=== PATIENT | female | born 1980 | race Caucasian/White ===

== ENCOUNTER 2022-08-02 16:57 | Observation (INO) ==
--- NOTE | 2022-08-02 17:09 | Emergency Department Note ---
History of Present Illness General Chief complaint: Abdominal Pain Stated complaint: STOMACH PAIN,LBP,DARK BOWEL,DIZZY Time Seen by Provider: 08/02/22 17:07 History of Present Illness Maximum Pain Intensity: 6 This 41-year-old female patient presents to the emergency department with her rita stockton for evaluation of abdominal pain, diarrhea, and black stools for the past couple of days. Rates her discomfort as 6/10. She has a history of IBS (alternating constipation and diarrhea) as well as diverticulitis. She had been taking Colestipol for bile acid reflux, but hasn't taken it for the past week. She takes a baby aspirin for "a clogged artery" in her left thigh. Denies frequent NSAIDs. She has been under a lot of stress recently. Sees A in [place] for GI. Last EGD and colonoscopy were about 3-4 years ago per patient. She is unsure what they showed though. She went to the ER in [place] on 07/28/[address] scan of her abdomen and pelvis with IV contrast that was normal per patient. Was started on Levsin and she has been taking it 3 times a day with improvement of the abdominal cramping, but still having abdominal pain, diarrhea, and black stools. She started with generalized abdominal pain about 2 weeks ago that has gotten progressively worse. Was having a lot of abdominal spasms as well that initially improved with Levsin, but then came back. Diarrhea has been off and on for a couple weeks, but worse over the past week. Having up to 12 BMs a day for the past week, mostly in the morning. She was at a alliance party today and had a BM that was "pure black liquid stools," her blood pressure dropped, and she felt like she was going to pass out per patient and she became concerned. Typically she has elevated blood pressure readings so the low blood pressure is abnormal for her. Normally takes losartan once a day and labetalol twice a day. she was just started on amlodipine by her PCP, but has not started taking it yet. Was treated with Diflucan for a yeast infection the end of June right before the diarrhea started. Was also given a script for Zofran, but has not been taking because the Levsin has helped with her nausea. Constantly belching and having a lot of reflux symptoms despite her Nexium 40 mg BID. No bright red blood in her stools. Initially her stool was yellowish brown and then turned to mucous and black watery stools. Not on any blood thinners. Denies any chest pain or shortness of breath. Denies any fevers, cough, or URI symptoms. Home Medications Medication Instructions Recorded Confirmed Type amlodipine 5 mg tablet 5 mg PO DAILY 08/02/22 08/02/22 History aspirin 81 mg tablet,delayed 81 mg PO DAILY 08/02/22 08/02/22 History release benzoyl peroxide 5 % topical 1 applic topical DAILY 08/02/22 08/02/22 History cleanser cholecalciferol (vitamin D3) 25 1,000 unit PO DAILY 08/02/22 08/02/22 History mcg (1,000 unit) tablet clindamycin phosphate 1 % topical 1 applic topical BID 08/02/22 08/02/22 History swab colestipol 1 gram tablet 1 - 2 g PO BID PRN as directed 08/02/22 08/02/22 History dicyclomine 20 mg tablet 20 mg PO UD 08/02/22 08/02/22 History esomeprazole magnesium 40 mg 40 mg PO BID 08/02/22 08/02/22 History capsule,delayed release fexofenadine 180 mg tablet 180 mg PO DAILY 08/02/22 08/02/22 History (Breanna Allergy) fluticasone propionate 115 2 puff inhalation BID 08/02/22 08/02/22 History mcg-salmeterol 21 mcg/actuation HFA inhaler (Advair HFA) hyoscyamine sulfate 0.125 mg tablet 0.125 mg PO QID 08/02/22 08/02/22 History labetalol 200 mg tablet 200 mg PO BID 08/02/22 08/02/22 History levalbuterol tartrate 45 2 puff inhalation Q4 PRN acute 08/02/22 08/02/22 History mcg/actuation aerosol inhaler symptoms COUGH,WHEEZE,SOB, losartan 100 mg tablet 100 mg PO DAILY 08/02/22 08/02/22 History montelukast 10 mg tablet 10 mg PO DAILY 08/02/22 08/02/22 History eipxboed-mbc-oacz-FA-Ca carb-vit K 1 tab PO DAILY 08/02/22 08/02/22 History 18 mg iron-400 mcg-500 mg tablet (One-A-Day Womens Formula) norethindrone (contraceptive) 0.35 0.35 mg PO DAILY 08/02/22 08/02/22 History mg tablet (Jencycla) rizatriptan 10 mg tablet 10 mg PO UD PRN Headache 08/02/22 08/02/22 History tretinoin 0.025 % topical cream 1 applic topical HS 08/02/22 08/02/22 History (Retin-A) triamcinolone acetonide 55 mcg 2 spray intranasal DAILY 08/02/22 08/02/22 History nasal spray aerosol Allergies Allergy/AdvReac Type Severity Reaction Status Date / Time acetaminophen Allergy Rash Verified 08/02/22 17:23 [From Darvocet-N] meperidine [From Demerol] Allergy Swollen Verified 08/02/22 17:23 throat propoxyphene Allergy Rash Verified 08/02/22 17:23 [From Darvocet-N] Sulfa (Sulfonamide Allergy Rash Verified 08/02/22 17:23 Antibiotics) tetracycline Allergy Rash Verified 08/02/22 17:23 Past Med/Surg History Medical History Allergic rhinitis Anxiety Asthma Diverticulitis GERD (gastroesophageal reflux disease) HTN (hypertension) with goal to be determined IBS (irritable bowel syndrome) Peripheral arterial disease Scoliosis Surgical History H/O detached retina repair H/O dilation and curettage History of breast lump removal History of cholecystectomy Social History Smoking Status: Never smoker Feels Safe at Home: Yes Review of Systems See HPI for pertinent positives & negatives. Physical Exam Vital Signs Vital Signs - 24 hr 08/02/22 17:01 08/02/22 19:19 08/02/22 20:50 Temperature 36.8 C Temperature Source Temporal Artery Scan Pulse Rate 77 Pulse Rate [Apical] 71 71 Pulse Rhythm [Apical] Regular Pulse Strength [Apical] Normal Respiratory Rate 19 19 Respiratory Effort / Characteristics Non-Labored Non-Labored Respiratory Depth Normal Normal Blood Pressure 183/118 H Blood Pressure [Left Arm] 181/111 H 183/104 H Blood Pressure Mean 139 Blood Pressure Mean [Left Arm] 134 130 Pulse Oximetry 98 97 100 Oxygen Delivery Method Room Air Room Air Room Air Sepsis Recent Fever Within 48 Hours No Sepsis New/Unexplained Change in Mental Status N/A Sepsis Action Taken by Nursing No Action Required 08/02/22 21:08 08/02/22 22:12 Temperature Temperature Source Pulse Rate 77 65 Pulse Rate [Apical] Pulse Rhythm [Apical] Pulse Strength [Apical] Respiratory Rate 16 19 Respiratory Effort / Characteristics Respiratory Depth Blood Pressure 164/89 H 159/97 H Blood Pressure [Left Arm] Blood Pressure Mean 114 117 Blood Pressure Mean [Left Arm] Pulse Oximetry 98 99 Oxygen Delivery Method Room Air Room Air Sepsis Recent Fever Within 48 Hours Sepsis New/Unexplained Change in Mental Status Sepsis Action Taken by Nursing VITALS: Vitals are noted on the nurse's note and reviewed by myself. GENERAL: Non toxic, no acute distress, non-diaphoretic. SKIN: Capillary refill <2 sec. EARS: External auditory canals clear, tympanic membranes pearly curry without erythema or effusion bilaterally. EYES: PERRLA. EOMI. Conjunctivae without injection, sclerae without icterus. NOSE: Patent without discharge. MOUTH: Mucous membranes moist. Uvula midline. Airway patent. NECK: Supple without nuchal rigidity. HEART: Regular rate and rhythm without murmurs gallops or rubs. LUNGS: Clear to auscultation bilaterally without wheezes, rales or rhonchi. No retractions or accessory muscle use. ABDOMEN: Positive bowel sounds x 4. Normal tympanic percussion. Soft, nontender, without masses or organomegaly. Grady sign negative. No guarding or rebound tenderness. No focal RLQ or LLQ tenderness. RECTAL EXAM: Permission to perform the exam. Framing And Hanging present for exam. No external lesions noted. No external hemorrhoids. Normal sphincter tone. Internal hemorrhoids are not enlarged. No masses, tears, fistulas, fissures, abscess, or other lesion noted. Stool is black and Hemoccult positive. MUSCULOSKELETAL: No gross musculoskeletal defects. NEURO: Patient was alert and oriented to person place and time. No focal neurological deficits. Course Administered Medications Discontinued Medications Amlodipine Besylate (Amlodipine Besylate 5 Mg Tab) 5 mg PO NOW ONE Stop: 08/02/22 21:02 Last Admin: 08/02/22 21:25 Dose: Not Given Documented By: MELIA Sodium Chloride (Nss 1000ml) 1,000 mls @ 999 mls/hr IV .Q1H1M STA Stop: 08/02/22 18:34 Last Infusion: 08/02/22 19:01 Dose: 0 mls/hr Documented By: Admin: 08/02/22 18:00 Dose: 999 mls/hr Documented By: NRB Pantoprazole Sodium 40 mg/ (Syringe) 10 mls @ 5 mls/min IV NOW ONE Stop: 08/02/22 17:38 Last Admin: 08/02/22 18:17 Dose: 5 mls/min Documented By: NRB Famotidine (Pepcid 20mg Iv Push) 20 mg in 5 mls @ 2.5 mls/min IV NOW STA Stop: 08/02/22 17:38 Last Admin: 08/02/22 18:16 Dose: 2.5 mls/min Documented By: NRJudit Ioversol (Optiray 320 100ml) 93 ml IV ONCE ONE Stop: 08/02/22 19:59 Last Admin: 08/02/22 19:58 Dose: 93 ml Documented By: EAJudit Labetalol HCl (Labetalol Hcl 200 Mg Tab) 200 mg PO NOW STA Stop: 08/02/22 21:02 Last Admin: 08/02/22 21:17 Dose: 200 mg Documented By: MELIA Lorazepam (Lorazepam 2 Mg/1 Ml Vial) 0.25 mg IV NOW STA Stop: 08/03/22 00:08 Last Admin: 08/03/22 00:33 Dose: 0.25 mg Documented By: MELIA Ondansetron HCl (Ondansetron Inj 2 Mg/Ml 2 Ml Vial) 4 mg IV NOW STA Stop: 08/02/22 18:13 Last Admin: 08/02/22 18:15 Dose: 4 mg Documented By: NRB Medical Decision Making Differential Diagnosis Differential diagnosis includes hepatitis, pancreatitis, cholecystitis, cholelithiasis, appendicitis, kidney stone, pyelonephritis, UTI, gastritis, gastroenteritis, mesenteric adenitis, obstruction, constipation, hernia, GI bl eed, abdominal abscess, perforation, diverticulitis, IBD, ischemic colitis, abdominal aortic aneurysm, , ectopic , ovarian cyst, ovarian torsion, acute salpingitis, or others. Laboratory Data Attestation: I reviewed the patient's lab results. 08/02/22 17:37 08/02/22 17:37 Lab Results 08/02/22 08/02/22 08/02/22 Range/Units 17:37 17:37 17:37 WBC 12.53 H (4.8-10.8) K/ul RBC 4.78 (4.20-5.40) M/uL Hgb 13.9 (12.0-16.0) g/dl Hct 41.1 (37.0-47.0) % MCV 86.0 (80.0-100.0) fL MCH 29.1 (25.0-34.0) pg MCHC 33.8 (32.0-36.0) g/dL RDW Std Deviation 42.5 (36.4-46.3) fL RDW Coeff of Sarah 13.5 (11.5-14.5) % Plt Count 327 (130-400) K/uL MPV 10.5 (9.4-12.4) fL Immature Gran % (Auto) 0.4 % Neut % (Auto) 71.6 % Lymph % (Auto) 20.3 % [place] % (Auto) 5.2 % Eos % (Auto) 2.2 % Baso % (Auto) 0.3 % Neut # (Auto) 8.98 H (1.40-6.50) K/uL Lymph # (Auto) 2.54 (1.2-3.4) K/uL [place]acken # (Auto) 0.65 H (0.11-0.59) K/uL Eos # (Auto) 0.27 (0-0.50) K/uL Baso # (Auto) 0.04 (0-0.2) K/uL Immature Gran # (Auto) 0.05 (0.01-0.20) K/uL PT 10.6 (9.0-12.0) Seconds INR 1.0 (0.9-1.1) APTT 25.3 (21.0-31.0) Seconds PTT Ratio 0.9 Sodium 139 (136-145) mmol/L Potassium 3.7 (3.5-5.1) mmol/L Chloride 105 (98-107) mmol/L Carbon Dioxide 25 (21-32) mmol/L Anion Gap 9 (3-11) BUN 9 (6-23) mg/dl Creatinine 0.94 (0.6-1.2) mg/dl Est Cr Clr Drug Dosing 87.4 ml/min Est GFR ( Amer) 88.0 ml/min Est GFR (Non-Af Amer) 75.9 ml/min BUN/Creatinine Ratio 9.6 L (10-20) Glucose 101 H (70-99(Fasting)) mg/dl Lactate (0.4-2.0) mmol/L Calcium 9.9 (8.6-10.3) mg/dl Magnesium 2.0 (1.7-2.4) mg/dl Total Bilirubin 0.8 (0.2-1.0) mg/dl AST 36 (13-39) U/L ALT 56 H (7-52) U/L Alkaline Phosphatase 55 (34-104) U/L Total Protein 7.8 (6.0-8.3) gm/dl Albumin 4.7 (3.4-5.0) gm/dl Globulin 3.1 (2.5-4.0) gm/dl Albumin/Globulin Ratio 1.5 (0.9-2) Lipase 29 (11-82) U/L HCG, Qual (Negative) Urine Color Urine Appearance (Clear) Urine pH (4.5-7.5) Ur Specific [place] (1.000-1.030) Urine Protein (Negative) Urine Glucose (UA) (Negative) Urine Ketones (Negative) Urine Blood (Negative) Urine Nitrite (Negative) Urine Bilirubin (Negative) Urine Urobilinogen (Negative) Ur Leukocyte Esterase (Negative) 08/02/22 08/02/22 08/02/22 Range/Units 17:37 17:37 17:54 WBC (4.8-10.8) K/ul RBC (4.20-5.40) M/uL Hgb (12.0-16.0) g/dl Hct (37.0-47.0) % MCV (80.0-100.0) fL MCH (25.0-34.0) pg MCHC (32.0-36.0) g/dL RDW Std Deviation (36.4-46.3) fL RDW Coeff of Sarah (11.5-14.5) % Plt Count (130-400) K/uL MPV (9.4-12.4) fL Immature Gran % (Auto) % Neut % (Auto) % Lymph % (Auto) % [place]ack[place] % (Auto) % Eos % (Auto) % Baso % (Auto) % Neut # (Auto) (1.40-6.50) K/uL Lymph # (Auto) (1.2-3.4) K/uL [place] # (Auto) (0.11-0.59) K/uL Eos # (Auto) (0-0.50) K/uL Baso # (Auto) (0-0.2) K/uL Immature Gran # (Auto) (0.01-0.20) K/uL PT (9.0-12.0) Seconds INR (0.9-1.1) APTT (21.0-31.0) Seconds PTT Ratio Sodium (136-145) mmol/L Potassium (3.5-5.1) mmol/L Chloride (98-107) mmol/L Carbon Dioxide (21-32) mmol/L Anion Gap (3-11) BUN (6-23) mg/dl Creatinine (0.6-1.2) mg/dl Est Cr Clr Drug Dosing ml/min Est GFR ( Amer) ml/min Est GFR (Non-Af Amer) ml/min BUN/Creatinine Ratio (10-20) Glucose (70-99(Fasting)) mg/dl Lactate 1.1 (0.4-2.0) mmol/L Calcium (8.6-10.3) mg/dl Magnesium (1.7-2.4) mg/dl Total Bilirubin (0.2-1.0) mg/dl AST (13-39) U/L ALT (7-52) U/L Alkaline Phosphatase (34-104) U/L Total Protein (6.0-8.3) gm/dl Albumin (3.4-5.0) gm/dl Globulin (2.5-4.0) gm/dl Albumin/Globulin Ratio (0.9-2) Lipase (11-82) U/L HCG, Qual Negative (Negative) Urine Color Yellow Urine Appearance Clear (Clear) Urine pH 7.5 (4.5-7.5) Ur Specific [place] 1.003 (1.000-1.030) Urine Protein Negative (Negative) Urine Glucose (UA) Negative (Negative) Urine Ketones Negative (Negative) Urine Blood Negative (Negative) Urine Nitrite Negative (Negative) Urine Bilirubin Negative (Negative) Urine Urobilinogen Negative (Negative) Ur Leukocyte Esterase Negative (Negative) 08/02/22 Range/Units 22:13 WBC 10.74 (4.8-10.8) K/ul RBC 4.41 (4.20-5.40) M/uL Hgb 12.7 (12.0-16.0) g/dl Hct 37.3 (37.0-47.0) % MCV 84.6 (80.0-100.0) fL MCH 28.8 (25.0-34.0) pg MCHC 34.0 (32.0-36.0) g/dL RDW Std Deviation 42.2 (36.4-46.3) fL RDW Coeff of Sarah 13.5 (11.5-14.5) % Plt Count 284 (130-400) K/uL MPV 10.5 (9.4-12.4) fL Immature Gran % (Auto) % Neut % (Auto) % Lymph % (Auto) % [place] % (Auto) % Eos % (Auto) % Baso % (Auto) % Neut # (Auto) (1.40-6.50) K/uL Lymph # (Auto) (1.2-3.4) K/uL [place] # (Auto) (0.11-0.59) K/uL Eos # (Auto) (0-0.50) K/uL Baso # (Auto) (0-0.2) K/uL Immature Gran # (Auto) (0.01-0.20) K/uL PT (9.0-12.0) Seconds INR (0.9-1.1) APTT (21.0-31.0) Seconds PTT Ratio Sodium (136-145) mmol/L Potassium (3.5-5.1) mmol/L Chloride (98-107) mmol/L Carbon Dioxide (21-32) mmol/L Anion Gap (3-11) BUN (6-23) mg/dl Creatinine (0.6-1.2) mg/dl Est Cr Clr Drug Dosing ml/min Est GFR ( Amer) ml/min Est GFR (Non-Af Amer) ml/min BUN/Creatinine Ratio (10-20) Glucose (70-99(Fasting)) mg/dl Lactate (0.4-2.0) mmol/L Calcium (8.6-10.3) mg/dl Magnesium (1.7-2.4) mg/dl Total Bilirubin (0.2-1.0) mg/dl AST (13-39) U/L ALT (7-52) U/L Alkaline Phosphatase (34-104) U/L Total Protein (6.0-8.3) gm/dl Albumin (3.4-5.0) gm/dl Globulin (2.5-4.0) gm/dl Albumin/Globulin Ratio (0.9-2) Lipase (11-82) U/L HCG, Qual (Negative) Urine Color Urine Appearance (Clear) Urine pH (4.5-7.5) Ur Specific [place] (1.000-1.030) Urine Protein (Negative) Urine Glucose (UA) (Negative) Urine Ketones (Negative) Urine Blood (Negative) Urine Nitrite (Negative) Urine Bilirubin (Negative) Urine Urobilinogen (Negative) Ur Leukocyte Esterase (Negative) Imaging Data Radiologist's Impression: Abdomen/Pelvis CT 08/02/22 17:34 Exam(s): CT ABDOMEN + PELVIS With Contrast Oral - High Density Amt: 30ml GASTROGRAFFIN, IV Amt: 93ML OPTIRAY 320 EXAM: CT Abdomen and Pelvis With Intravenous Contrast CLINICAL HISTORY: Reason for exam: Abdominal pain, Melena, diarrhea. TECHNIQUE: Axial computed tomography images of the abdomen and pelvis with intravenous contrast. CTDI is 26.1 mGy and DLP is 1195.04 mGy-cm. Automated exposure control was utilized for the study. A dose lowering technique was utilized adhering to the principles of ALARA. CONTRAST: Patient received 30ml GASTROGRAFFIN of Oral - High Density and 93ML OPTIRAY 320 of IV contrast COMPARISON: No relevant prior studies available. FINDINGS: Lung bases: Unremarkable. No mass. No consolidation. ABDOMEN: Liver: Unremarkable. No mass. Gallbladder and bile ducts: Cholecystectomy. No ductal dilation. Pancreas: Unremarkable. No mass. No ductal dilation. Spleen: Unremarkable. No splenomegaly. Adrenals: Unremarkable. No mass. Kidneys and ureters: Unremarkable. No solid mass. No hydronephrosis. Stomach and bowel: Oral contrast administered. No bowel obstruction or inflammation. PELVIS: Appendix: Normal appendix. Bladder: Unremarkable. No mass. Reproductive: Unremarkable as visualized. ABDOMEN and PELVIS: Intraperitoneal space: Unremarkable. No free air. No significant fluid collection. Bones/joints: No acute fracture. No dislocation. Soft tissues: Unremarkable. Vasculature: Unremarkable. No abdominal aortic aneurysm. Lymph nodes: Unremarkable. No enlarged lymph nodes. IMPRESSION: No acute findings in the abdomen or pelvis. Electronically signed by: Kobi Rdz M.D. 08/02/22 21:35 PM MDM Narrative I examined the patient. An IV lock was placed and labs were drawn. She was given 1 L normal saline solution bolus. She was given Protonix 40 mg IV and Pepcid 20 mg IV followed by Zofran 4 mg IV. She declined any medication for pain while in the emergency department. The patient was concerned about her blood pressure and she was given her evening dose of labetalol 200 mg p.o. with improvement of her blood pressure. She was also prescribed amlodipine 5 mg p.o. which she had been started on by her family doctor for additional blood pressure control, but she refused this medication in the emergency department per nursing. Rectal exam with black stools that were heme positive. She has had abdominal pain for the past couple weeks with development of diarrhea followed by black tarry stools. The patient was unable to give a stool sample while in the emergency department. The patient was seen in the [place] ER on 07/28/2022 with an unremarkable work-up per patient. We do not have access to these records at this time. However, her symptoms have been getting worse per patient. The patient is concerned her symptoms are secondary to her aspirin use. She denies any frequent NSAID use. She does take Nexium 40 mg twice a day, but has been having breakthrough reflux symptoms recently. Initial CBC showed a white blood cell count of 12.53, hemoglobin 13.9, and platelet count of 327. Repeat CBC about 4-1/2 hours later showed a white blood cell count of 10.74, hemoglobin 12.7, and platelet count of 284. Coags were normal. ALT was elevated at 56 with known history of fatty liver disease per patient. Remainder of the CMP was essentially unremarkable. Lipase was normal. Serum hCG was negative. Lactate was normal. Magnesium was normal. Urinalysis negative for blood or infection. CT scan of the abdomen and pelvis with oral and IV contrast was reviewed by myself and read by radiology as above and shows no acute abnormalities. I had a meaningful discussion about this patient with Dr. Gallo who agrees with my assessment and the treatment plan. The patient has had multiple episodes of black tarry stools and her Hemoccult on rectal exam in the ER was positive. The patient's hemoglobin also dropped from 13.9 to 12.7 while in the emergency department. The patient continues to complain of abdominal pain as well that has progressively gotten worse. Therefore, we feel the patient would benefit from admission for continued monitoring of her hemoglobin as well as further evaluation of the melena and heme positive stools. I spoke with the on- call hospitalist who agreed to admit the patient for further evaluation and treatment. Please refer to their dictation for further details. The patient's care was transferred in stable condition. Impression & Plan Abdominal pain, Heme positive stool, Melena, Diarrhea Discharge Plan Visit Data Chief Complaint: Abdominal Pain Stated Complaint: STOMACH PAIN,LBP,DARK BOWEL,DIZZY ED Provider: Sherry Gallo ED Midlevel Provider: Marielle Palumbo. Discharge Problem: Abdominal pain, Heme positive stool, Melena, Diarrhea Patient Disposition: Admitted As Inpatient Condition: Good Forms Stand Alone Forms: My [facility] [employer] Prescriptions Prescriptions: No Action amlodipine 5 mg tablet 5 mg PO DAILY losartan 100 mg tablet 100 mg PO DAILY aspirin [Aspirin Low-Strength] 81 mg Tablet,Delayed Release (Dr/Ec) 81 mg PO DAILY hyoscyamine sulfate 0.125 mg tablet 0.125 mg PO QID Rx Instructions: been taking it 3x a day since the labetalol 200 mg tablet 200 mg PO BID tretinoin [Retin-A] 0.025 % cream 1 applic TOPICAL HS esomeprazole magnesium 40 mg capsule,delayed release(DR/EC) 40 mg PO BID montelukast 10 mg tablet 10 mg PO DAILY fluticasone propion-salmeterol [Advair HFA] 115-21 mcg/actuation HFA aerosol inhaler 2 puff INHALATION BID cholecalciferol (vitamin D3) 25 mcg (1,000 unit) tablet 1,000 unit PO DAILY clindamycin phosphate 1 % swab 1 applic TOPICAL BID benzoyl peroxide 5 % cleanser 1 applic TOPICAL DAILY norethindrone (contraceptive) [Jencycla] 0.35 mg tablet 0.35 mg PO DAILY rizatriptan 10 mg tablet 10 mg PO UD PRN (Reason: Headache) fexofenadine [Breanna Allergy] 180 mg Tablet 180 mg PO DAILY colestipol 1 gram tablet 1 - 2 g PO BID PRN (Reason: as directed) levalbuterol tartrate 45 mcg/actuation HFA aerosol inhaler 2 puff INHALATION Q4 PRN (Reason: acute symptoms COUGH,WHEEZE,SOB,) One-A-Day Womens Formula 18 mg iron-400 mcg-500 mg Tablet 1 tab PO DAILY triamcinolone acetonide 55 mcg Aerosol,[place] 2 spray INTRANASAL DAILY Rx Instructions: administer into each nostril dicyclomine 20 mg tablet 20 mg PO UD Referrals Referrals: PCP,NO [Physician] -
[2022-08-02] MEDS ORDERED: SODIUM CHLORIDE 0.9% 1000ML 1,000 ML IV STA (17:34)
[2022-08-02] MEDS ORDERED: PANTOprazole 40 MG in SYRINGE 0 ML IV ONE (17:37)
[2022-08-02] MEDS ORDERED: FAMOTIDINE 20MG IV PUSH 20 MG/5 ML SYR IV STA (17:37)
[2022-08-02 17:53] LABS: Basophils # (auto) 0.04 K/uL (0-0.2); Basophils % (auto) 0.3 %; Eosinophils # (auto) 0.27 K/uL (0-0.50); Eosinophils % (auto) 2.2 %; Hematocrit (blood only) 41.1 % (37.0-47.0); Hemoglobin 13.9 g/dl (12.0-16.0); Immature Granulocytes # (auto) 0.05 K/uL (0.01-0.20); Immature Granulocytes % (auto) 0.4 %; Lymphocytes # (auto) 2.54 K/uL (1.2-3.4); Lymphocytes % (auto) 20.3 %; Mean Corpuscular Hemoglobin 29.1 pg (25.0-34.0); Mean Corpuscular Hgb Conc 33.8 g/dL (32.0-36.0); Mean Platelet Volume 10.5 fL (9.4-12.4); Monocytes # (auto) 0.65 K/uL (0.11-0.59); Monocytes % (auto) 5.2 %; Neutrophils # (auto) 8.98 K/uL (1.40-6.50); Neutrophils % (auto) 71.6 %; Platelet Count 327 K/uL (130-400); RDW Coefficient of Variation 13.5 % (11.5-14.5); RDW Standard Deviation 42.5 fL (36.4-46.3); Red Blood Count 4.78 M/uL (4.20-5.40); White Blood Count 12.53 K/ul (4.8-10.8)
[2022-08-02 18:05] LABS: Appearance Urine Clear (Clear); Bilirubin Urine Negative (Negative); Blood Urine Negative (Negative); Color Urine Yellow; Glucose Urine UA Negative (Negative); Ketones Urine Negative (Negative); Leukocyte Esterase Urine Negative (Negative); Nitrite Urine Negative (Negative); Protein Urine Negative (Negative); Specific Gravity Urine 1.003 (1.000-1.030); Urobilinogen Urine Negative (Negative); pH Urine 7.5 (4.5-7.5)
[2022-08-02 18:07] LABS: Pregnancy Test, Serum Negative (Negative)
[2022-08-02 18:08] LABS: Albumin Globulin Ratio 1.5 (0.9-2); Albumin Level 4.7 gm/dl (3.4-5.0); BUN Creatinine Ratio 9.6 (10-20); Bilirubin,Total 0.8 mg/dl (0.2-1.0); Calcium 9.9 mg/dl (8.6-10.3); Creatinine Clr Calc Pharmacy 87.4 ml/min; Est GFR (Non-African American) 75.9 ml/min; Globulin 3.1 gm/dl (2.5-4.0); Potassium 3.7 mmol/L (3.5-5.1); Total Protein 7.8 gm/dl (6.0-8.3)
[2022-08-02] MEDS ORDERED: ONDANSETRON INJ 2 MG/ML 2 ML VIAL IV STA (18:12)
[2022-08-02 18:18] LABS: Partial Thromboplastin Ratio 0.9; Partial Thromboplastin Time 25.3 Seconds (21.0-31.0); Prothrombin Time 10.6 Seconds (9.0-12.0)
[2022-08-02] MEDS ORDERED: OPTIRAY 320 100ml IV ONE (19:58)
[2022-08-02] MEDS ORDERED: amLODIPine BESYLATE 5 MG TAB PO ONE (21:01)
[2022-08-02] MEDS ORDERED: LABETALOL HCL 200 MG TAB PO STA (21:01)
--- NOTE | 2022-08-02 21:36 | CT Scan Report ---
Exam(s): CT ABDOMEN + PELVIS With Contrast Oral - High Density Amt: 30ml GASTROGRAFFIN, IV Amt: 93ML OPTIRAY 320 EXAM: CT Abdomen and Pelvis With Intravenous Contrast CLINICAL HISTORY: Reason for exam: Abdominal pain, Melena, diarrhea. TECHNIQUE: Axial computed tomography images of the abdomen and pelvis with intravenous contrast. CTDI is 26.1 mGy and DLP is 1195.04 mGy-cm. Automated exposure control was utilized for the study. A dose lowering technique was utilized adhering to the principles of ALARA. CONTRAST: Patient received 30ml GASTROGRAFFIN of Oral - High Density and 93ML OPTIRAY 320 of IV contrast COMPARISON: No relevant prior studies available. FINDINGS: Lung bases: Unremarkable. No mass. No consolidation. ABDOMEN: Liver: Unremarkable. No mass. Gallbladder and bile ducts: Cholecystectomy. No ductal dilation. Pancreas: Unremarkable. No mass. No ductal dilation. Spleen: Unremarkable. No splenomegaly. Adrenals: Unremarkable. No mass. Kidneys and ureters: Unremarkable. No solid mass. No hydronephrosis. Stomach and bowel: Oral contrast administered. No bowel obstruction or inflammation. PELVIS: Appendix: Normal appendix. Bladder: Unremarkable. No mass. Reproductive: Unremarkable as visualized. ABDOMEN and PELVIS: Intraperitoneal space: Unremarkable. No free air. No significant fluid collection. Bones/joints: No acute fracture. No dislocation. Soft tissues: Unremarkable. Vasculature: Unremarkable. No abdominal aortic aneurysm. Lymph nodes: Unremarkable. No enlarged lymph nodes. IMPRESSION: No acute findings in the abdomen or pelvis. Electronically signed by: Kobi Rdz M.D. 08/02/22 21:35 PM
[2022-08-02 22:20] LABS: Hematocrit (blood only) 37.3 % (37.0-47.0); Hemoglobin 12.7 g/dl (12.0-16.0); Mean Corpuscular Hemoglobin 28.8 pg (25.0-34.0); Mean Corpuscular Volume 84.6 fL (80.0-100.0); Mean Platelet Volume 10.5 fL (9.4-12.4); Platelet Count 284 K/uL (130-400); RDW Coefficient of Variation 13.5 % (11.5-14.5); RDW Standard Deviation 42.2 fL (36.4-46.3); Red Blood Count 4.41 M/uL (4.20-5.40); White Blood Count 10.74 K/ul (4.8-10.8)
[2022-08-02] MEDS ORDERED: NSS + 20MEQ KCL 20 MEQ/1,000 ML BAG IV ONE (23:22)
[2022-08-03] MEDS ORDERED: LORazepam 2 MG/1 ML VIAL IV STA (00:07)
--- NOTE | 2022-08-03 00:40 | History & Physical Report ---
Date of Service August 03, 2022 Assessment & Plan (1) UGIB (upper gastrointestinal bleed): Plan: hx GERD hx ASA for PAD Diarrhea rule out infectious process hx IBS patient nontoxic HTN, elevated secondary anxiety/discomfort bronchial asthma, stable past tobacco abuse OBS Medical telemetry IV PPI Appropriate to hold aspirin for now GI consult re: UGIB N.p.o. until patient seen by GI in anticipation of endoscopy if warranted Follow H&H, transfuse PRBC if hemoglobin less than 8 and or for symptomatic anemia (hx PAD) Stool CS, stool C. difficile Analgesia, anxiolytic as needed DVT prophylaxis. VAL given GI bleed, SCDs contraindicated with history PAD Full code Text document was generated using [employer] voice recognition software. It may contain grammatical or spelling errors. Kindly contact undersigned for clarification of any documentation item in question. History of Present Illness Chief Complaint: Melena Primary Care Provider: Yovany Pineda History obtained from patient and records. Medical history significant for HTN, PAD on aspirin, bronchial asthma, IBS, GERD, diverticulosis, past tobacco abuse. Patient started on aspirin once daily 6 months ago for peripheral arterial disease of the left lower extremity. Last week, patient noted achy abdominal discomfort/chronic diarrhea symptoms, worse than usual IBS symptoms. Patient seen at [facility] ER. Unremarkable imaging and blood work as per patient, patient discharged on Levsin. Improved abdominal discomfort however persistent diarrhea. Melanotic stools noted the last 2 days. Some nausea, no emesis. No OTC NSAID intake other than aspirin for PAD. Patient compliant with PPI regimen Admits to some personal stressors. Not sure about sick contacts given [facility] trips to visit mother who was admitted for ulcerative colitis flareup. No unusual weight loss. Intermittent headache symptoms with history of head trauma few months ago. No unusual chest pain, no SOB. Erratic BP at home with lightheadedness. Compliant with home BP meds. IV Protonix administered at the ER for UGIB. Medical History as above Recent EGD/Colonoscopy 2020 by [facility]. Patient does not recall all endoscopic findings. Surgical History : Breast biopsy, tonsillectomy, cholecystectomy, right forearm surgery, hip surgery, leg vein surgery, mandibular fracture surgery, bilateral retinal detachment surgery Family History : Ulcerative colitis, lung cancer, cirrhosis, DM, heart disease Personal/Social history : Past tobacco abuse, no EtOH intake, housewife Allergies Allergy/AdvReac Type Severity Reaction Status Date / Time acetaminophen Allergy Rash Verified 08/02/22 17:23 [From Darvocet-N] meperidine [From Demerol] Allergy Swollen Verified 08/02/22 17:23 throat propoxyphene Allergy Rash Verified 08/02/22 17:23 [From Darvocet-N] Sulfa (Sulfonamide Allergy Rash Verified 08/02/22 17:23 Antibiotics) tetracycline Allergy Rash Verified 08/02/22 17:23 Home Medications Medication Instructions Recorded Confirmed Type amlodipine 5 mg tablet 5 mg PO DAILY 08/02/22 08/02/22 History aspirin 81 mg tablet,delayed 81 mg PO DAILY 08/02/22 08/02/22 History release benzoyl peroxide 5 % topical 1 applic topical DAILY 08/02/22 08/02/22 History cleanser cholecalciferol (vitamin D3) 25 1,000 unit PO DAILY 08/02/22 08/02/22 History mcg (1,000 unit) tablet clindamycin phosphate 1 % topical 1 applic topical BID 08/02/22 08/02/22 History swab colestipol 1 gram tablet 1 - 2 g PO BID PRN as directed 08/02/22 08/02/22 History dicyclomine 20 mg tablet 20 mg PO UD 08/02/22 08/02/22 History esomeprazole magnesium 40 mg 40 mg PO BID 08/02/22 08/02/22 History capsule,delayed release fexofenadine 180 mg tablet 180 mg PO DAILY 08/02/22 08/02/22 History (Breanna Allergy) fluticasone propionate 115 2 puff inhalation BID 08/02/22 08/02/22 History mcg-salmeterol 21 mcg/actuation HFA inhaler (Advair HFA) hyoscyamine sulfate 0.125 mg tablet 0.125 mg PO QID 08/02/22 08/02/22 History labetalol 200 mg tablet 200 mg PO BID 08/02/22 08/02/22 History levalbuterol tartrate 45 2 puff inhalation Q4 PRN acute 08/02/22 08/02/22 History mcg/actuation aerosol inhaler symptoms COUGH,WHEEZE,SOB, losartan 100 mg tablet 100 mg PO DAILY 08/02/22 08/02/22 History montelukast 10 mg tablet 10 mg PO DAILY 08/02/22 08/02/22 History [id number]-[id number]-huyd-FA-Ca carb-vit K 1 tab PO DAILY 08/02/22 08/02/22 History 18 mg iron-400 mcg-500 mg tablet (One-A-Day Womens Formula) norethindrone (contraceptive) 0.35 0.35 mg PO DAILY 08/02/22 08/02/22 History mg tablet (Jencycla) rizatriptan 10 mg tablet 10 mg PO UD PRN Headache 08/02/22 08/02/22 History tretinoin 0.025 % topical cream 1 applic topical HS 08/02/22 08/02/22 History (Retin-A) triamcinolone acetonide 55 mcg 2 spray intranasal DAILY 08/02/22 08/02/22 History nasal spray aerosol Past Med/Surg History Medical History Allergic rhinitis Anxiety Asthma Diverticulitis GERD (gastroesophageal reflux disease) HTN (hypertension) with goal to be determined IBS (irritable bowel syndrome) Peripheral arterial disease Scoliosis Surgical History H/O detached retina repair H/O dilation and curettage History of breast lump removal History of cholecystectomy Social History Smoking Status: Never smoker Feels Safe at Home: Yes Review of Systems Review of Systems: As per HPI, all other systems reviewed and negative Physical Exam Physical Exam: GENERAL: Comfortable, pleasant, anxious, obese, no respiratory distress SKIN: Normal color, warm HEENT: Bespectacled, pink palpebral conjunctivae, no ptosis, dry buccal mucosa NECK : Supple, short neck, no tenderness CHEST : CTA, no tenderness HEART : RRR, no obvious murmurs ABDOMEN: Some distention, epigastric tenderness EXTREMITIES : Chronic LLE swelling with minimal tenderness, no other conspicuous deformities noted NEUROLOGIC : Coherent, no facial asymmetry, no other gross focality Results & Data Results & Data Vital Signs (Past 12 Hours) Vital Signs Temp Pulse Pulse Resp BP BP Pulse Ox 08/02/22 22:12 65 19 159/97 H 99 08/02/22 21:08 77 16 164/89 H 98 08/02/22 20:50 71 183/104 H 100 08/02/22 19:19 71 19 181/111 H 97 08/02/22 17:01 36.8 C 77 19 183/118 H 98 O2 Del Method 08/02/22 22:12 Room Air 08/02/22 21:08 Room Air 08/02/22 20:50 Room Air 08/02/22 19:19 Room Air 08/02/22 17:01 Room Air Laboratory Results Laboratory Results WBC 10.74 K/ul (4.8-10.8) 08/02/22 22:13 RBC 4.41 M/uL (4.20-5.40) 08/02/22 22:13 Hgb 12.7 g/dl (12.0-16.0) 08/02/22 22:13 Hct 37.3 % (37.0-47.0) 08/02/22 22:13 MCV 84.6 fL (80.0-100.0) 08/02/22 22:13 MCH 28.8 pg (25.0-34.0) 08/02/22 22:13 MCHC 34.0 g/dL (32.0-36.0) 08/02/22 22:13 RDW Std Deviation 42.2 fL (36.4-46.3) 08/02/22 22:13 RDW Coeff of Sarah 13.5 % (11.5-14.5) 08/02/22 22:13 Plt Count 284 K/uL (130-400) 08/02/22 22:13 MPV 10.5 fL (9.4-12.4) 08/02/22 22:13 Immature Gran % (Auto) 0.4 % 08/02/22 17:37 Neut % (Auto) 71.6 % 08/02/22 17:37 Lymph % (Auto) 20.3 % 08/02/22 17:37 Carter % (Auto) 5.2 % 08/02/22 17:37 Eos % (Auto) 2.2 % 08/02/22 17:37 Baso % (Auto) 0.3 % 08/02/22 17:37 Neut # (Auto) 8.98 K/uL (1.40-6.50) H 08/02/22 17:37 Lymph # (Auto) 2.54 K/uL (1.2-3.4) 08/02/22 17:37 Carter # (Auto) 0.65 K/uL (0.11-0.59) H 08/02/22 17:37 Eos # (Auto) 0.27 K/uL (0-0.50) 08/02/22 17:37 Baso # (Auto) 0.04 K/uL (0-0.2) 08/02/22 17:37 Immature Gran # (Auto) 0.05 K/uL (0.01-0.20) 08/02/22 17:37 PT 10.6 Seconds (9.0-12.0) 08/02/22 17:37 INR 1.0 (0.9-1.1) 08/02/22 17:37 APTT 25.3 Seconds (21.0-31.0) 08/02/22 17:37 PTT Ratio 0.9 08/02/22 17:37 Sodium 139 mmol/L (136-145) 08/02/22 17:37 Potassium 3.7 mmol/L (3.5-5.1) 08/02/22 17:37 Chloride 105 mmol/L (98-107) 08/02/22 17:37 Carbon Dioxide 25 mmol/L (21-32) 08/02/22 17:37 Anion Gap 9 (3-11) 08/02/22 17:37 BUN 9 mg/dl (6-23) 08/02/22 17:37 Creatinine 0.94 mg/dl (0.6-1.2) 08/02/22 17:37 Est Cr Clr Drug Dosing 87.4 ml/min 08/02/22 17:37 Est GFR ( Amer) 88.0 ml/min 08/02/22 17:37 Est GFR (Non-Af Amer) 75.9 ml/min 08/02/22 17:37 BUN/Creatinine Ratio 9.6 (10-20) L 08/02/22 17:37 Glucose 101 mg/dl (70-99(Fasting)) H 08/02/22 17:37 Lactate 1.1 mmol/L (0.4-2.0) 08/02/22 17:54 Calcium 9.9 mg/dl (8.6-10.3) 08/02/22 17:37 Magnesium 2.0 mg/dl (1.7-2.4) 08/02/22 17:37 Total Bilirubin 0.8 mg/dl (0.2-1.0) 08/02/22 17:37 AST 36 U/L (13-39) 08/02/22 17:37 ALT 56 U/L (7-52) H 08/02/22 17:37 Alkaline Phosphatase 55 U/L (34-104) 08/02/22 17:37 Total Protein 7.8 gm/dl (6.0-8.3) 08/02/22 17:37 Albumin 4.7 gm/dl (3.4-5.0) 08/02/22 17:37 Globulin 3.1 gm/dl (2.5-4.0) 08/02/22 17:37 Albumin/Globulin Ratio 1.5 (0.9-2) 08/02/22 17:37 Lipase 29 U/L (11-82) 08/02/22 17:37 HCG, Qual Negative (Negative) 08/02/22 17:37 Urine Color Yellow 08/02/22 17:37 Urine Appearance Clear (Clear) 08/02/22 17:37 Urine pH 7.5 (4.5-7.5) 08/02/22 17:37 Ur Specific [place] 1.003 (1.000-1.030) 08/02/22 17:37 Urine Protein Negative (Negative) 08/02/22 17:37 Urine Glucose (UA) Negative (Negative) 08/02/22 17:37 Urine Ketones Negative (Negative) 08/02/22 17:37 Urine Blood Negative (Negative) 08/02/22 17:37 Urine Nitrite Negative (Negative) 08/02/22 17:37 Urine Bilirubin Negative (Negative) 08/02/22 17:37 Urine Urobilinogen Negative (Negative) 08/02/22 17:37 Ur Leukocyte Esterase Negative (Negative) 08/02/22 17:37 Impressions Abdomen/Pelvis CT 08/02/22 17:34 Exam(s): CT ABDOMEN + PELVIS With Contrast Oral - High Density Amt: 30ml GASTROGRAFFIN, IV Amt: 93ML OPTIRAY 320 EXAM: CT Abdomen and Pelvis With Intravenous Contrast CLINICAL HISTORY: Reason for exam: Abdominal pain, Melena, diarrhea. TECHNIQUE: Axial computed tomography images of the abdomen and pelvis with intravenous contrast. CTDI is 26.1 mGy and DLP is 1195.04 mGy-cm. Automated exposure control was utilized for the study. A dose lowering technique was utilized adhering to the principles of ALARA. CONTRAST: Patient received 30ml GASTROGRAFFIN of Oral - High Density and 93ML OPTIRAY 320 of IV contrast COMPARISON: No relevant prior studies available. FINDINGS: Lung bases: Unremarkable. No mass. No consolidation. ABDOMEN: Liver: Unremarkable. No mass. Gallbladder and bile ducts: Cholecystectomy. No ductal dilation. Pancreas: Unremarkable. No mass. No ductal dilation. Spleen: Unremarkable. No splenomegaly. Adrenals: Unremarkable. No mass. Kidneys and ureters: Unremarkable. No solid mass. No hydronephrosis. Stomach and bowel: Oral contrast administered. No bowel obstruction or inflammation. PELVIS: Appendix: Normal appendix. Bladder: Unremarkable. No mass. Reproductive: Unremarkable as visualized. ABDOMEN and PELVIS: Intraperitoneal space: Unremarkable. No free air. No significant fluid collection. Bones/joints: No acute fracture. No dislocation. Soft tissues: Unremarkable. Vasculature: Unremarkable. No abdominal aortic aneurysm. Lymph nodes: Unremarkable. No enlarged lymph nodes. IMPRESSION: No acute findings in the abdomen or pelvis. Electronically signed by: Kboi Rdz M.D. 08/02/22 21:[address] head: No acute intracranial process.
[2022-08-03] MEDS ORDERED: LOSARTAN POTASSIUM 50 MG TAB PO STA (00:56)
--- NOTE | 2022-08-03 01:07 | CT Scan Report ---
Exam(s): CT HEAD Without Contrast EXAM: CT Head Without Intravenous Contrast CLINICAL HISTORY: Reason for exam: jackson, trauma. TECHNIQUE: Axial computed tomography images of the head/brain without intravenous contrast. CTDI is 37.95 mGy and DLP is 547.75 mGy-cm. Automated exposure control was utilized for the study. A dose lowering technique was utilized adhering to the principles of ALARA. COMPARISON: No relevant prior studies available. FINDINGS: Brain: Unremarkable. No hemorrhage. No significant white matter disease. No edema. White-white matter differentiation maintained. Ventricles: Unremarkable. No hydrocephalus. Bones/joints: Unremarkable. No acute fracture. Soft tissues: Unremarkable. Sinuses: Unremarkable as visualized. No acute sinusitis. Mastoid air cells: Unremarkable as visualized. No mastoid effusion. IMPRESSION: No acute intracranial process. Electronically signed by: Kobi Rdz M.D. 08/03/22 01:06 AM
[2022-08-03] MEDS ORDERED: MoRPHine SULFATE 4 MG/ML 1 ML CARP\\VIAL IV PRN (01:14)
[2022-08-03 01:40] LABS: Adenovirus F 40/41 PCR Not Detected (NotDetected); Astrovirus PCR Not Detected (NotDetected); Campylobacter PCR Not Detected (NotDetected); Cryptosporidium PCR Not Detected (NotDetected); Cyclospora cayetanensis PCR Not Detected (NotDetected); Entamoeba histolytica PCR Not Detected (NotDetected); Enteroaggregative E.coli(EAEC) Not Detected (NotDetected); Enteropathogenic E.coli (EPEC) Not Detected (NotDetected); Enterotoxigenic E.coli (ETEC) Not Detected (NotDetected); Giardia lamblia PCR Not Detected (NotDetected); Norovirus GI/GII PCR Not Detected (NotDetected); Plesiomonas shigelloides PCR Not Detected (NotDetected); Rotavirus A PCR Not Detected (NotDetected); Salmonella PCR Not Detected (NotDetected); Sapovirus PCR Not Detected (NotDetected); Shiga-like Toxin E.coli (STEC) Not Detected (NotDetected); Shigella/Enteroinvasive E.coli Not Detected (NotDetected); Vibrio cholerae PCR Not Detected (NotDetected); Vibrio species PCR Not Detected (NotDetected); Yersinia enterocolitica PCR Not Detected (NotDetected)
[2022-08-03] MEDS ORDERED: ACETAMINOPHEN 325 MG TAB PO PRN (02:30)
[2022-08-03] MEDS: traMADol HCL 50 MG TABLET PO PRN ×2 (03:04→21:26)
[2022-08-03 06:00] LABS: Basophils # (auto) 0.04 K/uL (0-0.2); Basophils % (auto) 0.3 %; Eosinophils # (auto) 0.23 K/uL (0-0.50); Hematocrit (blood only) 36.5 % (37.0-47.0); Hemoglobin 12.5 g/dl (12.0-16.0); Immature Granulocytes # (auto) 0.04 K/uL (0.01-0.20); Immature Granulocytes % (auto) 0.3 %; Lymphocytes # (auto) 3.55 K/uL (1.2-3.4); Mean Corpuscular Hgb Conc 34.2 g/dL (32.0-36.0); Mean Corpuscular Volume 84.7 fL (80.0-100.0); Mean Platelet Volume 10.3 fL (9.4-12.4); Monocytes # (auto) 0.67 K/uL (0.11-0.59); Monocytes % (auto) 5.9 %; Neutrophils # (auto) 6.92 K/uL (1.40-6.50); Neutrophils % (auto) 60.5 %; Platelet Count 269 K/uL (130-400); RDW Coefficient of Variation 13.6 % (11.5-14.5); RDW Standard Deviation 42.2 fL (36.4-46.3); Red Blood Count 4.31 M/uL (4.20-5.40); White Blood Count 11.45 K/ul (4.8-10.8)
[2022-08-03 06:21] LABS: BUN Creatinine Ratio 8.1 (10-20); Calcium 8.6 mg/dl (8.6-10.3); Est GFR (African American) 97.9 ml/min; Est GFR (Non-African American) 84.5 ml/min; Potassium 3.3 mmol/L (3.5-5.1)
[2022-08-03] MEDS: LORazepam 2 MG/1 ML VIAL IV PRN ×3 (07:48→21:26)
--- NOTE | 2022-08-03 08:15 | Gastrointestinal Consultation ---
Date of Consultation August 03, 2022 Assessment & Plan (1) UGIB (upper gastrointestinal bleed): Interesting that she has had diarrhea for several days but only on presentation to ED did she develop black stools. I have trouble sorting out whether she is having an IBS issue or if she has an acute infectious enteritis. She doesn't have a reason really for ulcer disease as she is taking nexium twice daily and this should reasonable protect against baby ASA induced ulcer. Her drop in her H/H is mild at best. I do think she needs EGD and plan to do this tomorrow just to rule out UGI issues. She agrees. I don't think it needs to be done emergently unless conditions change as her H/H are in the normal range. History of Present Illness Reason for Consultation: black stools Attending Physician: Bismark Santamaria MD History of Present Illness 41 year old female who has had diarrhea for several days now that consisted of "bile-looking" yellow stools. She went to ER in [place] earlier this week for hypertension and her diarrhea. She was given levsin for this. She has had issues with diarrhea "all of her life" and gets her GI care in [place]. She says she probably has had "10" EGD's and colonoscopies with the last being about three years ago. She says that when she came to ED at [facility] she started having "black liquid stools". She denies usage of peptobismol. She does take a baby aspirin and she has been told that could cause her trouble with ulcer bleeding. She does take nexium twice daily for reflux. She always has diffuse abdominal pains with her IBS flare ups. Hgb was 13.9 on admit and fell to 12.7 and is now 12.5. Allergies Allergy/AdvReac Type Severity Reaction Status Date / Time acetaminophen Allergy Rash Verified 08/02/22 17:23 [From Darvocet-N] meperidine [From Demerol] Allergy Swollen Verified 08/02/22 17:23 throat propoxyphene Allergy Rash Verified 08/02/22 17:23 [From Darvocet-N] Sulfa (Sulfonamide Allergy Rash Verified 08/02/22 17:23 Antibiotics) tetracycline Allergy Rash Verified 08/02/22 17:23 Home Medications Medication Instructions Recorded Confirmed Type amlodipine 5 mg tablet 5 mg PO DAILY 08/02/22 08/02/22 History aspirin 81 mg tablet,delayed 81 mg PO DAILY 08/02/22 08/02/22 History release benzoyl peroxide 5 % topical 1 applic topical DAILY 08/02/22 08/02/22 History cleanser cholecalciferol (vitamin D3) 25 1,000 unit PO DAILY 08/02/22 08/02/22 History mcg (1,000 unit) tablet clindamycin phosphate 1 % topical 1 applic topical BID 08/02/22 08/02/22 History swab colestipol 1 gram tablet 1 - 2 g PO BID PRN as directed 08/02/22 08/02/22 History dicyclomine 20 mg tablet 20 mg PO UD 08/02/22 08/02/22 History esomeprazole magnesium 40 mg 40 mg PO BID 08/02/22 08/02/22 History capsule,delayed release fexofenadine 180 mg tablet 180 mg PO DAILY 08/02/22 08/02/22 History (Breanna Allergy) fluticasone propionate 115 2 puff inhalation BID 08/02/22 08/02/22 History mcg-salmeterol 21 mcg/actuation HFA inhaler (Advair HFA) hyoscyamine sulfate 0.125 mg tablet 0.125 mg PO QID 08/02/22 08/02/22 History labetalol 200 mg tablet 200 mg PO BID 08/02/22 08/02/22 History levalbuterol tartrate 45 2 puff inhalation Q4 PRN acute 08/02/22 08/02/22 History mcg/actuation aerosol inhaler symptoms COUGH,WHEEZE,SOB, losartan 100 mg tablet 100 mg PO DAILY 08/02/22 08/02/22 History montelukast 10 mg tablet 10 mg PO DAILY 08/02/22 08/02/22 History mvfnwtdq-erp-otjp-FA-Ca carb-vit K 1 tab PO DAILY 08/02/22 08/02/22 History 18 mg iron-400 mcg-500 mg tablet (One-A-Day Womens Formula) norethindrone (contraceptive) 0.35 0.35 mg PO DAILY 08/02/22 08/02/22 History mg tablet (Jencycla) rizatriptan 10 mg tablet 10 mg PO UD PRN Headache 08/02/22 08/02/22 History tretinoin 0.025 % topical cream 1 applic topical HS 08/02/22 08/02/22 History (Retin-A) triamcinolone acetonide 55 mcg 2 spray intranasal DAILY 08/02/22 08/02/22 History nasal spray aerosol Patient History Medical History Allergic rhinitis Anxiety Asthma Diverticulitis GERD (gastroesophageal reflux disease) HTN (hypertension) with goal to be determined IBS (irritable bowel syndrome) Peripheral arterial disease Scoliosis Surgical History H/O detached retina repair H/O dilation and curettage History of breast lump removal History of cholecystectomy Social History Smoking Status: Former smoker Hx Alcohol Use: Yes Alcohol type: wine Hx Substance Use: Yes Preferred Language: Maltese [employer] Required: No Beliefs That Will Affect Care: None Current Living Situation: Spouse Current Living Situation Comment: Lives at home with spouse, biological, and adopted children Feels Safe at Home: Yes Safety Concerns: Feels Safe At This Time Assistive Devices: None and Glasses Review of Systems Review of Systems: All systems reviewed & are unremarkable except as noted in HPI & below Physical Exam Constitutional: WD/WN, vitals as above no acute distress Eyes: PERRL, conjunctivae normal, anicteric sclerae ENMT: external ear and nose normal, oropharynx normal Neck: trachea midline, no thyromegaly Respiratory: normal respiratory effort, lungs clear to auscultation Cardiovascular: RRR, no murmur, no edema Gastrointestinal (Abdomen): normal bowel sounds, soft, nontender, no hepatosplenomegaly Musculoskeletal: Extremities: no cyanosis and no clubbing Skin: no rashes, warm and dry Neurologic: PERRL, EOMI, accommodation nl, no face palsy, no dysarthria Psychiatric: Orientation: alert and oriented x 3 Results & Data Vital Signs (Past 12 Hours) Vital Signs Temp Pulse Pulse Pulse Resp BP BP 08/03/22 06:00 83 08/03/22 03:22 87 08/03/22 02:30 36.7 C 78 18 139/82 08/03/22 02:39 36.7 C 78 18 139/82 08/03/22 00:45 79 17 169/95 H 08/02/22 22:12 65 19 159/97 H 08/02/22 21:08 77 16 164/89 H 08/02/22 20:50 71 183/104 H Pulse Ox O2 Del Method 08/03/22 06:00 08/03/22 03:22 08/03/22 02:30 96 Room Air 08/03/22 02:39 96 Room Air 08/03/22 00:45 97 Room Air 08/02/22 22:12 99 Room Air 08/02/22 21:08 98 Room Air 08/02/22 20:50 100 Room Air Laboratory Results 08/03/22 08/03/22 08/03/22 Range/Units 05:43 05:43 00:45 WBC 11.45 H (4.8-10.8) K/ul RBC 4.31 (4.20-5.40) M/uL Hgb 12.5 (12.0-16.0) g/dl Hct 36.5 L (37.0-47.0) % MCV 84.7 (80.0-100.0) fL MCH 29.0 (25.0-34.0) pg MCHC 34.2 (32.0-36.0) g/dL RDW Std Deviation 42.2 (36.4-46.3) fL RDW Coeff of Sarah 13.6 (11.5-14.5) % Plt Count 269 (130-400) K/uL MPV 10.3 (9.4-12.4) fL Immature Gran % (Auto) 0.3 % Neut % (Auto) 60.5 % Lymph % (Auto) 31.0 % [place] % (Auto) 5.9 % Eos % (Auto) 2.0 % Baso % (Auto) 0.3 % Neut # (Auto) 6.92 H (1.40-6.50) K/uL Lymph # (Auto) 3.55 H (1.2-3.4) K/uL [place] # (Auto) 0.67 H (0.11-0.59) K/uL Eos # (Auto) 0.23 (0-0.50) K/uL Baso # (Auto) 0.04 (0-0.2) K/uL Immature Gran # (Auto) 0.04 (0.01-0.20) K/uL PT (9.0-12.0) Seconds INR (0.9-1.1) APTT (21.0-31.0) Seconds PTT Ratio Sodium 140 (136-145) mmol/L Potassium 3.3 L (3.5-5.1) mmol/L Chloride 108 H (98-107) mmol/L Carbon Dioxide 25 (21-32) mmol/L Anion Gap 7 (3-11) BUN 7 (6-23) mg/dl Creatinine 0.86 (0.6-1.2) mg/dl Est Cr Clr Drug Dosing 86.0 ml/min Est GFR ( Amer) 97.9 ml/min Est GFR (Non-Af Amer) 84.5 ml/min BUN/Creatinine Ratio 8.1 L (10-20) Glucose 84 (70-99(Fasting)) mg/dl Lactate (0.4-2.0) mmol/L Calcium 8.6 (8.6-10.3) mg/dl Magnesium (1.7-2.4) mg/dl Total Bilirubin (0.2-1.0) mg/dl AST (13-39) U/L ALT (7-52) U/L Alkaline Phosphatase (34-104) U/L Total Protein (6.0-8.3) gm/dl Albumin (3.4-5.0) gm/dl Globulin (2.5-4.0) gm/dl Albumin/Globulin Ratio (0.9-2) Lipase (11-82) U/L HCG, Qual (Negative) Urine Color Urine Appearance (Clear) Urine pH (4.5-7.5) Ur Specific Kevin (1.000-1.030) Urine Protein (Negative) Urine Glucose (UA) (Negative) Urine Ketones (Negative) Urine Blood (Negative) Urine Nitrite (Negative) Urine Bilirubin (Negative) Urine Urobilinogen (Negative) Ur Leukocyte Esterase (Negative) Stl C. cayetanensis PCR (NotDetected) Stool Rotavirus A PCR (NotDetected) Stl Adenov F 40/41 PCR (NotDetected) Stool Astrovirus (PCR) (NotDetected) Stool Campylobacter PCR (NotDetected) Stl C. diff Tox B Gene (Neg) Stool Cryptosporidium PCR (NotDetected) Stl E.coli Shiga Tox PCR (NotDetected) Stl Enterotoxigenic E PCR (NotDetected) Stool EPEC (PCR) (NotDetected) Stool EAEC (PCR) (NotDetected) Stl E. histolytica PCR (NotDetected) Stool Giardia Lamblia PCR (NotDetected) Stool Salmonella PCR (NotDetected) Stool Sapovirus (PCR) (NotDetected) Stl P. shigelloides PCR (NotDetected) Stl Shigella/EIEC PCR (NotDetected) St Y.enterocolitica PCR (NotDetected) Stool Vibrio (PCR) (NotDetected) Stl Vibrio cholerae PCR (NotDetected) Stl Norovirus GI/GII PCR (NotDetected) SARS-CoV-2, RNA, NAAT NEGATIVE (NEGATIVE) 08/03/22 08/03/22 08/02/22 Range/Units 00:13 00:13 22:13 WBC 10.74 (4.8-10.8) K/ul RBC 4.41 (4.20-5.40) M/uL Hgb 12.7 (12.0-16.0) g/dl Hct 37.3 (37.0-47.0) % MCV 84.6 (80.0-100.0) fL MCH 28.8 (25.0-34.0) pg MCHC 34.0 (32.0-36.0) g/dL RDW Std Deviation 42.2 (36.4-46.3) fL RDW Coeff of Sarah 13.5 (11.5-14.5) % Plt Count 284 (130-400) K/uL MPV 10.5 (9.4-12.4) fL Immature Gran % (Auto) % Neut % (Auto) % Lymph % (Auto) % [place] % (Auto) % Eos % (Auto) % Baso % (Auto) % Neut # (Auto) (1.40-6.50) K/uL Lymph # (Auto) (1.2-3.4) K/uL [place] # (Auto) (0.11-0.59) K/uL Eos # (Auto) (0-0.50) K/uL Baso # (Auto) (0-0.2) K/uL Immature Gran # (Auto) (0.01-0.20) K/uL PT (9.0-12.0) Seconds INR (0.9-1.1) APTT (21.0-31.0) Seconds PTT Ratio Sodium (136-145) mmol/L Potassium (3.5-5.1) mmol/L Chloride (98-107) mmol/L Carbon Dioxide (21-32) mmol/L Anion Gap (3-11) BUN (6-23) mg/dl Creatinine (0.6-1.2) mg/dl Est Cr Clr Drug Dosing ml/min Est GFR ( Amer) ml/min Est GFR (Non-Af Amer) ml/min BUN/Creatinine Ratio (10-20) Glucose (70-99(Fasting)) mg/dl Lactate (0.4-2.0) mmol/L Calcium (8.6-10.3) mg/dl Magnesium (1.7-2.4) mg/dl Total Bilirubin (0.2-1.0) mg/dl AST (13-39) U/L ALT (7-52) U/L Alkaline Phosphatase (34-104) U/L Total Protein (6.0-8.3) gm/dl Albumin (3.4-5.0) gm/dl Globulin (2.5-4.0) gm/dl Albumin/Globulin Ratio (0.9-2) Lipase (11-82) U/L HCG, Qual (Negative) Urine Color Urine Appearance (Clear) Urine pH (4.5-7.5) Ur Specific Kevin (1.000-1.030) Urine Protein (Negative) Urine Glucose (UA) (Negative) Urine Ketones (Negative) Urine Blood (Negative) Urine Nitrite (Negative) Urine Bilirubin (Negative) Urine Urobilinogen (Negative) Ur Leukocyte Esterase (Negative) Stl C. cayetanensis PCR Not Detected (NotDetected) Stool Rotavirus A PCR Not Detected (NotDetected) Stl Adenov F 40/41 PCR Not Detected (NotDetected) Stool Astrovirus (PCR) Not Detected (NotDetected) Stool Campylobacter PCR Not Detected (NotDetected) Stl C. diff Tox B Gene Negative Cdiff Gene (Neg) Stool Cryptosporidium PCR Not Detected (NotDetected) Stl E.coli Shiga Tox PCR Not Detected (NotDetected) Stl Enterotoxigenic E PCR Not Detected (NotDetected) Stool EPEC (PCR) Not Detected (NotDetected) Stool EAEC (PCR) Not Detected (NotDetected) Stl E. histolytica PCR Not Detected (NotDetected) Stool Giardia Lamblia PCR Not Detected (NotDetected) Stool Salmonella PCR Not Detected (NotDetected) Stool Sapovirus (PCR) Not Detected (NotDetected) Stl P. shigelloides PCR Not Detected (NotDetected) Stl Shigella/EIEC PCR Not Detected (NotDetected) St Y.enterocolitica PCR Not Detected (NotDetected) Stool Vibrio (PCR) Not Detected (NotDetected) Stl Vibrio cholerae PCR Not Detected (NotDetected) Stl Norovirus GI/GII PCR Not Detected (NotDetected) SARS-CoV-2, RNA, NAAT (NEGATIVE) 08/02/22 08/02/22 08/02/22 Range/Units 17:54 17:37 17:37 WBC (4.8-10.8) K/ul RBC (4.20-5.40) M/uL Hgb (12.0-16.0) g/dl Hct (37.0-47.0) % MCV (80.0-100.0) fL MCH (25.0-34.0) pg MCHC (32.0-36.0) g/dL RDW Std Deviation (36.4-46.3) fL RDW Coeff of Sarah (11.5-14.5) % Plt Count (130-400) K/uL MPV (9.4-12.4) fL Immature Gran % (Auto) % Neut % (Auto) % Lymph % (Auto) % [place] % (Auto) % Eos % (Auto) % Baso % (Auto) % Neut # (Auto) (1.40-6.50) K/uL Lymph # (Auto) (1.2-3.4) K/uL [place] # (Auto) (0.11-0.59) K/uL Eos # (Auto) (0-0.50) K/uL Baso # (Auto) (0-0.2) K/uL Immature Gran # (Auto) (0.01-0.20) K/uL PT (9.0-12.0) Seconds INR (0.9-1.1) APTT (21.0-31.0) Seconds PTT Ratio Sodium (136-145) mmol/L Potassium (3.5-5.1) mmol/L Chloride (98-107) mmol/L Carbon Dioxide (21-32) mmol/L Anion Gap (3-11) BUN (6-23) mg/dl Creatinine (0.6-1.2) mg/dl Est Cr Clr Drug Dosing ml/min Est GFR ( Amer) ml/min Est GFR (Non-Af Amer) ml/min BUN/Creatinine Ratio (10-20) Glucose (70-99(Fasting)) mg/dl Lactate 1.1 (0.4-2.0) mmol/L Calcium (8.6-10.3) mg/dl Magnesium (1.7-2.4) mg/dl Total Bilirubin (0.2-1.0) mg/dl AST (13-39) U/L ALT (7-52) U/L Alkaline Phosphatase (34-104) U/L Total Protein (6.0-8.3) gm/dl Albumin (3.4-5.0) gm/dl Globulin (2.5-4.0) gm/dl Albumin/Globulin Ratio (0.9-2) Lipase (11-82) U/L HCG, Qual Negative (Negative) Urine Color Yellow Urine Appearance Clear (Clear) Urine pH 7.5 (4.5-7.5) Ur Specific Kevin 1.003 (1.000-1.030) Urine Protein Negative (Negative) Urine Glucose (UA) Negative (Negative) Urine Ketones Negative (Negative) Urine Blood Negative (Negative) Urine Nitrite Negative (Negative) Urine Bilirubin Negative (Negative) Urine Urobilinogen Negative (Negative) Ur Leukocyte Esterase Negative (Negative) Stl C. cayetanensis PCR (NotDetected) Stool Rotavirus A PCR (NotDetected) Stl Adenov F 40/41 PCR (NotDetected) Stool Astrovirus (PCR) (NotDetected) Stool Campylobacter PCR (NotDetected) Stl C. diff Tox B Gene (Neg) Stool Cryptosporidium PCR (NotDetected) Stl E.coli Shiga Tox PCR (NotDetected) Stl Enterotoxigenic E PCR (NotDetected) Stool EPEC (PCR) (NotDetected) Stool EAEC (PCR) (NotDetected) Stl E. histolytica PCR (NotDetected) Stool Giardia Lamblia PCR (NotDetected) Stool Salmonella PCR (NotDetected) Stool Sapovirus (PCR) (NotDetected) Stl P. shigelloides PCR (NotDetected) Stl Shigella/EIEC PCR (NotDetected) St Y.enterocolitica PCR (NotDetected) Stool Vibrio (PCR) (NotDetected) Stl Vibrio cholerae PCR (NotDetected) Stl Norovirus GI/GII PCR (NotDetected) SARS-CoV-2, RNA, NAAT (NEGATIVE) 08/02/22 08/02/22 08/02/22 Range/Units 17:37 17:37 17:37 WBC 12.53 H (4.8-10.8) K/ul RBC 4.78 (4.20-5.40) M/uL Hgb 13.9 (12.0-16.0) g/dl Hct 41.1 (37.0-47.0) % MCV 86.0 (80.0-100.0) fL MCH 29.1 (25.0-34.0) pg MCHC 33.8 (32.0-36.0) g/dL RDW Std Deviation 42.5 (36.4-46.3) fL RDW Coeff of Sarah 13.5 (11.5-14.5) % Plt Count 327 (130-400) K/uL MPV 10.5 (9.4-12.4) fL Immature Gran % (Auto) 0.4 % Neut % (Auto) 71.6 % Lymph % (Auto) 20.3 % [place] % (Auto) 5.2 % Eos % (Auto) 2.2 % Baso % (Auto) 0.3 % Neut # (Auto) 8.98 H (1.40-6.50) K/uL Lymph # (Auto) 2.54 (1.2-3.4) K/uL [place] # (Auto) 0.65 H (0.11-0.59) K/uL Eos # (Auto) 0.27 (0-0.50) K/uL Baso # (Auto) 0.04 (0-0.2) K/uL Immature Gran # (Auto) 0.05 (0.01-0.20) K/uL PT 10.6 (9.0-12.0) Seconds INR 1.0 (0.9-1.1) APTT 25.3 (21.0-31.0) Seconds PTT Ratio 0.9 Sodium 139 (136-145) mmol/L Potassium 3.7 (3.5-5.1) mmol/L Chloride 105 (98-107) mmol/L Carbon Dioxide 25 (21-32) mmol/L Anion Gap 9 (3-11) BUN 9 (6-23) mg/dl Creatinine 0.94 (0.6-1.2) mg/dl Est Cr Clr Drug Dosing 87.4 ml/min Est GFR ( Amer) 88.0 ml/min Est GFR (Non-Af Amer) 75.9 ml/min BUN/Creatinine Ratio 9.6 L (10-20) Glucose 101 H (70-99(Fasting)) mg/dl Lactate (0.4-2.0) mmol/L Calcium 9.9 (8.6-10.3) mg/dl Magnesium 2.0 (1.7-2.4) mg/dl Total Bilirubin 0.8 (0.2-1.0) mg/dl AST 36 (13-39) U/L ALT 56 H (7-52) U/L Alkaline Phosphatase 55 (34-104) U/L Total Protein 7.8 (6.0-8.3) gm/dl Albumin 4.7 (3.4-5.0) gm/dl Globulin 3.1 (2.5-4.0) gm/dl Albumin/Globulin Ratio 1.5 (0.9-2) Lipase 29 (11-82) U/L HCG, Qual (Negative) Urine Color Urine Appearance (Clear) Urine pH (4.5-7.5) Ur Specific Kevin (1.000-1.030) Urine Protein (Negative) Urine Glucose (UA) (Negative) Urine Ketones (Negative) Urine Blood (Negative) Urine Nitrite (Negative) Urine Bilirubin (Negative) Urine Urobilinogen (Negative) Ur Leukocyte Esterase (Negative) Stl C. cayetanensis PCR (NotDetected) Stool Rotavirus A PCR (NotDetected) Stl Adenov F 40/41 PCR (NotDetected) Stool Astrovirus (PCR) (NotDetected) Stool Campylobacter PCR (NotDetected) Stl C. diff Tox B Gene (Neg) Stool Cryptosporidium PCR (NotDetected) Stl E.coli Shiga Tox PCR (NotDetected) Stl Enterotoxigenic E PCR (NotDetected) Stool EPEC (PCR) (NotDetected) Stool EAEC (PCR) (NotDetected) Stl E. histolytica PCR (NotDetected) Stool Giardia Lamblia PCR (NotDetected) Stool Salmonella PCR (NotDetected) Stool Sapovirus (PCR) (NotDetected) Stl P. shigelloides PCR (NotDetected) Stl Shigella/EIEC PCR (NotDetected) St Y.enterocolitica PCR (NotDetected) Stool Vibrio (PCR) (NotDetected) Stl Vibrio cholerae PCR (NotDetected) Stl Norovirus GI/GII PCR (NotDetected) SARS-CoV-2, RNA, NAAT (NEGATIVE) Diagnostic Findings Abdomen/Pelvis CT 08/02/22 17:34 Exam(s): CT ABDOMEN + PELVIS With Contrast Oral - High Density Amt: 30ml GASTROGRAFFIN, IV Amt: 93ML OPTIRAY 320 EXAM: CT Abdomen and Pelvis With Intravenous Contrast CLINICAL HISTORY: Reason for exam: Abdominal pain, Melena, diarrhea. TECHNIQUE: Axial computed tomography images of the abdomen and pelvis with intravenous contrast. CTDI is 26.1 mGy and DLP is 1195.04 mGy-cm. Automated exposure control was utilized for the study. A dose lowering technique was utilized adhering to the principles of ALARA. CONTRAST: Patient received 30ml GASTROGRAFFIN of Oral - High Density and 93ML OPTIRAY 320 of IV contrast COMPARISON: No relevant prior studies available. FINDINGS: Lung bases: Unremarkable. No mass. No consolidation. ABDOMEN: Liver: Unremarkable. No mass. Gallbladder and bile ducts: Cholecystectomy. No ductal dilation. Pancreas: Unremarkable. No mass. No ductal dilation. Spleen: Unremarkable. No splenomegaly. Adrenals: Unremarkable. No mass. Kidneys and ureters: Unremarkable. No solid mass. No hydronephrosis. Stomach and bowel: Oral contrast administered. No bowel obstruction or inflammation. PELVIS: Appendix: Normal appendix. Bladder: Unremarkable. No mass. Reproductive: Unremarkable as visualized. ABDOMEN and PELVIS: Intraperitoneal space: Unremarkable. No free air. No significant fluid collection. Bones/joints: No acute fracture. No dislocation. Soft tissues: Unremarkable. Vasculature: Unremarkable. No abdominal aortic aneurysm. Lymph nodes: Unremarkable. No enlarged lymph nodes. IMPRESSION: No acute findings in the abdomen or pelvis. Electronically signed by: Kobi Rdz M.D. 08/02/22 21:[address] 08/03/22 00:05 Exam(s): CT HEAD Without Contrast EXAM: CT Head Without Intravenous Contrast CLINICAL HISTORY: Reason for exam: jackson, trauma. TECHNIQUE: Axial computed tomography images of the head/brain without intravenous contrast. CTDI is 37.95 mGy and DLP is 547.75 mGy-cm. Automated exposure control was utilized for the study. A dose lowering technique was utilized adhering to the principles of ALARA. COMPARISON: No relevant prior studies available. FINDINGS: Brain: Unremarkable. No hemorrhage. No significant white matter disease. No edema. White-white matter differentiation maintained. Ventricles: Unremarkable. No hydrocephalus. Bones/joints: Unremarkable. No acute fracture. Soft tissues: Unremarkable. Sinuses: Unremarkable as visualized. No acute sinusitis. Mastoid air cells: Unremarkable as visualized. No mastoid effusion. IMPRESSION: No acute intracranial process. Electronically signed by: Kobi Rdz M.D. 08/03/22 01:06 AM
[2022-08-03] MEDS: FLUTICASONE PROPIONATE NA SPR 16 GM BTL NAE SCH (08:41)
[2022-08-03] MEDS: amLODIPine BESYLATE 5 MG TAB PO SCH (08:41)
[2022-08-03] MEDS: FEXOFENADINE HCL 180 MG TAB PO SCH (08:41)
[2022-08-03] MEDS: MULTIVITAMIN TAB PO SCH (08:41)
[2022-08-03] MEDS: LABETALOL HCL 200 MG TAB PO SCH ×2 (08:41→21:25)
[2022-08-03] MEDS: PANTOprazole 40 MG in SYRINGE 0 ML IV SCH ×2 (08:42→21:25)
[2022-08-03] MEDS: FLUTICASONE/VILANTEROL 200/25MCG 14 PUFFS/INHALER INH SCH (08:42)
[2022-08-03] MEDS ORDERED: ORAL CONTRACEPTIVE~ORDER AWAITING ACTION SCH (09:45)
[2022-08-03] MEDS: CHOLECALCIFEROL 1,000 UNITS 25 MCG TAB PO SCH (10:43)
--- NOTE | 2022-08-03 11:06 | Communication Note ---
Date of Service: August 03, 2022 Patient seen and examined at bedside. She is comfortably lying in the bed; reports diffuse abdominal pain. Constitutional: WD/WN, vitals as above, NAD, sitting up in bed, pleasant, conversing easily Respiratory: normal respiratory effort, lungs clear to auscultation, no wheeze, rales, rhonchi. Normal insp/exp effort, no accessory muscle use Cardiovascular: RRR, no murmur, no edema Vessels: no JVD or carotid bruit Chest: normal inspection of chest Abdomen: normal bowel sounds, soft, nontender, no hepatosplenomegaly Musculoskeletal: no cyanosis or clubbing, extremities motor strength 5/5 Skin: no rashes, warm and dry normal turgor Neurologic: PERRL, EOMI, accommodation nl, no face palsy, no dysarthria CN's II- XI intact bilaterally and moves all extremities Psychiatric: A+Ox3, euthymic affect Assessment/plan Upper GI bleedingcontinue on Protonix twice daily. Start full liquid diet. GI planning for endoscopy tomorrow AM. N.p.o. from midnight. Monitor H&H.
[2022-08-03 12:18] LABS: Hematocrit (blood only) 37.1 % (37.0-47.0); Hemoglobin 12.4 g/dl (12.0-16.0)
[2022-08-03] MEDS ORDERED: ONDANSETRON INJ 2 MG/ML 2 ML VIAL IV PRN (13:10)
[2022-08-03] MEDS ORDERED: NORETHINDRONE 0.35 MG PO ONE (15:45)
[2022-08-03] MEDS ORDERED: CONTRACEPTIVE PO ONE (15:45)
[2022-08-03] MEDS: CONTRACEPTIVE PO SCH (15:54)
[2022-08-03] MEDS: NORETHINDRONE 0.35 MG PO SCH (15:54)
[2022-08-03] MEDS ORDERED: MONTELUKAST SODIUM 10 MG TABLET PO SCH (21:00)
[2022-08-04 06:55] LABS: Basophils # (auto) 0.04 K/uL (0-0.2); Basophils % (auto) 0.4 %; Eosinophils # (auto) 0.31 K/uL (0-0.50); Eosinophils % (auto) 3.3 %; Hematocrit (blood only) 36.8 % (37.0-47.0); Hemoglobin 12.7 g/dl (12.0-16.0); Immature Granulocytes # (auto) 0.03 K/uL (0.01-0.20); Immature Granulocytes % (auto) 0.3 %; Lymphocytes # (auto) 3.08 K/uL (1.2-3.4); Lymphocytes % (auto) 32.9 %; Mean Corpuscular Hemoglobin 29.5 pg (25.0-34.0); Mean Corpuscular Hgb Conc 34.5 g/dL (32.0-36.0); Mean Corpuscular Volume 85.4 fL (80.0-100.0); Mean Platelet Volume 10.6 fL (9.4-12.4); Monocytes # (auto) 0.62 K/uL (0.11-0.59); Monocytes % (auto) 6.6 %; Neutrophils # (auto) 5.27 K/uL (1.40-6.50); Neutrophils % (auto) 56.5 %; Platelet Count 254 K/uL (130-400); RDW Coefficient of Variation 13.6 % (11.5-14.5); RDW Standard Deviation 42.3 fL (36.4-46.3); Red Blood Count 4.31 M/uL (4.20-5.40); White Blood Count 9.35 K/ul (4.8-10.8)
[2022-08-04 07:16] LABS: BUN Creatinine Ratio 7.9 (10-20); Calcium 8.6 mg/dl (8.6-10.3); Est GFR (Non-African American) 81.1 ml/min; Potassium 3.2 mmol/L (3.5-5.1)
[2022-08-04] MEDS: amLODIPine BESYLATE 5 MG TAB PO SCH (07:51)
[2022-08-04] MEDS: FEXOFENADINE HCL 180 MG TAB PO SCH (07:51)
[2022-08-04] MEDS: CHOLECALCIFEROL 1,000 UNITS 25 MCG TAB PO SCH (07:51)
[2022-08-04] MEDS: LABETALOL HCL 200 MG TAB PO SCH (07:52)
[2022-08-04] MEDS: FLUTICASONE/VILANTEROL 200/25MCG 14 PUFFS/INHALER INH SCH (07:52)
[2022-08-04] MEDS: MULTIVITAMIN TAB PO SCH (07:52)
[2022-08-04] MEDS: FLUTICASONE PROPIONATE NA SPR 16 GM BTL NAE SCH (07:52)
[2022-08-04] MEDS: NORETHINDRONE 0.35 MG PO SCH (07:53)
[2022-08-04] MEDS: CONTRACEPTIVE PO SCH (07:53)
[2022-08-04] MEDS: PANTOprazole 40 MG in SYRINGE 0 ML IV SCH (07:54)
--- NOTE | 2022-08-04 08:37 | Gastroenterology Progress Note ---
Supervising physician's note Case reviewed with Anyi Wall NP. Chart reveiwed. Endoscopy to be performed She is no longer passing black stool. Feels better. Still with some cramping and diarrhea Plan--EGD today A total of 15 minutes spent discussing with Anyi Wall NP, reviewing chart and meeting with patient Date of Service August 04, 2022 Assessment & Plan (1) UGIB (upper gastrointestinal bleed): Plan: UGIB: She has had diarrhea over the last several days but has developed black stools. Plan today is for EGD. She verbalizes understanding of procedure and voices no questions at this time. Continue current plan of care will reassess after endoscopy. Case reviewed with Dr. Toussaint. Please refer to supervising physician addendum for further recommendations. I have spent 20 minutes of discrete time performing the activities of this visit which include but are not limited to review of the medical record, obtaining a history, physical exam, and entering information in the electronic record. Admission and Anticipated Discharge Date Admission Date: August 03, 2022 Subjective Patient is awake alert and oriented sitting in her bed and position of comfort. Her is at bedside. Today. She has no questions that she has undergone procedure before. She does report that she has had history of significant anxiety prior to procedure. She follows with Jordan Correia for GI needs. She reports she has had some continued abdominal discomfort but denies nausea, vomiting, diarrhea this morning. Review of Systems Review of Systems: All systems reviewed & are unremarkable except as noted in Subjective Physical Exam Gastrointestinal (Abdomen): Inspection/Auscultation: abdomen normal to inspection and normal bowel sounds; abdomen not distended Percussion/Palpation: + abdomen tender (generalized) and abdomen soft; no guarding and abdomen not rigid Results & Data Vital Signs (Past 12 Hours) Vital Signs Temp Pulse Pulse Resp BP Pulse Ox O2 Del Method 08/04/22 08:00 74 08/04/22 07:42 37.0 C 90 20 149/88 H 94 Room Air 08/04/22 04:00 36.8 C 88 18 132/87 97 Room Air 08/04/22 01:02 93 H 08/03/22 23:20 37.0 C 85 18 122/82 95 Room Air Laboratory Results Laboratory Results - last 24 hr 06/25/23 06/26/23 06/26/23 11:54 06:16 06:16 WBC 9.35 RBC 4.31 Hgb 12.4 12.7 Hct 37.1 36.8 L MCV 85.4 MCH 29.5 MCHC 34.5 RDW Std Deviation 42.3 RDW Coeff of Sarah 13.6 Plt Count 254 MPV 10.6 Immature Gran % (Auto) 0.3 Neut % (Auto) 56.5 Lymph % (Auto) 32.9 [place] % (Auto) 6.6 Eos % (Auto) 3.3 Baso % (Auto) 0.4 Neut # (Auto) 5.27 Lymph # (Auto) 3.08 [place] # (Auto) 0.62 H Eos # (Auto) 0.31 Baso # (Auto) 0.04 Immature Gran # (Auto) 0.03 Sodium 139 Potassium 3.2 L Chloride 104 Carbon Dioxide 27 Anion Gap 8 BUN 7 Creatinine 0.89 Est Cr Clr Drug Dosing 83.0 Est GFR ( Amer) 94.0 Est GFR (Non-Af Amer) 81.1 BUN/Creatinine Ratio 7.9 L Glucose 83 Calcium 8.6
[2022-08-04] MEDS ORDERED: LOSARTAN POTASSIUM 50 MG TAB PO SCH (09:00)
--- NOTE | 2022-08-04 09:14 | Anesthesiology Consultation ---
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 Toussaint - Mindi Toussaint Jr, MD Height/Weight Height: 5 ft Weight: 88.2 kg Allergies Allergy/AdvReac Type Severity Reaction Status Date / Time acetaminophen Allergy Rash Verified 08/02/22 17:23 [From Darvocet-N] meperidine [From Demerol] Allergy Swollen Verified 08/02/22 17:23 throat propoxyphene Allergy Rash Verified 08/02/22 17:23 [From Darvocet-N] Sulfa (Sulfonamide Allergy Rash Verified 08/02/22 17:23 Antibiotics) tetracycline Allergy Rash Verified 08/02/22 17:23 Medications Home Medications Medication Instructions Recorded Confirmed Last Taken amlodipine 5 mg tablet 5 mg PO DAILY 08/02/22 08/02/22 Unknown aspirin 81 mg tablet,delayed 81 mg PO DAILY 08/02/22 08/02/22 Unknown release benzoyl peroxide 5 % topical 1 applic topical DAILY 08/02/22 08/02/22 Unknown cleanser cholecalciferol (vitamin D3) 25 1,000 unit PO DAILY 08/02/22 08/02/22 Unknown mcg (1,000 unit) tablet clindamycin phosphate 1 % topical 1 applic topical BID 08/02/22 08/02/22 Unknown swab colestipol 1 gram tablet 1 - 2 g PO BID PRN as directed 08/02/22 08/02/22 Unknown dicyclomine 20 mg tablet 20 mg PO UD 08/02/22 08/02/22 Unknown esomeprazole magnesium 40 mg 40 mg PO BID 08/02/22 08/02/22 Unknown capsule,delayed release fexofenadine 180 mg tablet 180 mg PO DAILY 08/02/22 08/02/22 Unknown (Breanna Allergy) fluticasone propionate 115 2 puff inhalation BID 08/02/22 08/02/22 Unknown mcg-salmeterol 21 mcg/actuation HFA inhaler (Advair HFA) hyoscyamine sulfate 0.125 mg tablet 0.125 mg PO QID 08/02/22 08/02/22 Unknown labetalol 200 mg tablet 200 mg PO BID 08/02/22 08/02/22 Unknown levalbuterol tartrate 45 2 puff inhalation Q4 PRN acute 08/02/22 08/02/22 Unknown mcg/actuation aerosol inhaler symptoms COUGH,WHEEZE,SOB, losartan 100 mg tablet 100 mg PO DAILY 08/02/22 08/02/22 Unknown montelukast 10 mg tablet 10 mg PO DAILY 08/02/22 08/02/22 Unknown vexpfhhv-uwc-zcvt-FA-Ca carb-vit K 1 tab PO DAILY 08/02/22 08/02/22 Unknown 18 mg iron-400 mcg-500 mg tablet (One-A-Day Womens Formula) norethindrone (contraceptive) 0.35 0.35 mg PO DAILY 08/02/22 08/02/22 Unknown mg tablet (Jencycla) rizatriptan 10 mg tablet 10 mg PO UD PRN Headache 08/02/22 08/02/22 Unknown tretinoin 0.025 % topical cream 1 applic topical HS 08/02/22 08/02/22 Unknown (Retin-A) triamcinolone acetonide 55 mcg 2 spray intranasal DAILY 08/02/22 08/02/22 Unknown nasal spray aerosol Active Medications Generic Name Dose Route Start Last Admin Trade Name Freq PRN Reason Stop Dose Admin Acetaminophen 650 mg 08/03/22 02:30 08/03/22 13:13 Acetaminophen 325 Mg Tab PO 09/02/22 02:29 650 mg Q4H PRN Administration Pain or Fever Amlodipine Besylate 5 mg 08/03/22 09:00 08/04/22 07:51 Amlodipine Besylate 5 Mg Tab PO 09/02/22 08:59 5 mg DAILY WINDY Administration Fexofenadine HCl 180 mg 08/03/22 09:00 08/04/22 07:51 Fexofenadine Hcl 180 Mg Tab PO 09/02/22 08:59 180 mg DAILY WINDY Administration Fluticasone Propionate 2 sprays 08/03/22 09:00 08/04/22 07:52 Fluticasone Propionate Na Spr 16 Gm Btl XAVIER 09/02/22 08:59 2 sprays DAILY WINDY Administration Fluticasone/Vilanterol 1 puffs 08/03/22 09:00 08/04/22 07:52 Fluticasone/Vilanterol 200/25mcg 14 Puffs/Inhaler INH 09/02/22 08:59 1 puffs DAILY WINDY Administration Pantoprazole Sodium 40 mg/ 10 mls @ 5 mls/min 08/03/22 09:00 08/04/22 07:54 Syringe IV 09/02/22 08:59 5 mls/min BID WINDY Administration Labetalol HCl 200 mg 08/03/22 09:00 08/04/22 07:52 Labetalol Hcl 200 Mg Tab PO 09/02/22 08:59 200 mg BID WINDY Administration Lorazepam 0.5 mg 08/03/22 01:14 08/03/22 21:26 Lorazepam 2 Mg/1 Ml Vial IV 09/02/22 01:13 0.5 mg Q6H PRN Administration Anxiety Losartan Potassium 100 mg 08/04/22 09:00 08/04/22 08:26 Losartan Potassium 50 Mg Tab PO 09/03/22 08:59 100 mg DAILY WINDY Administration Miscellaneous 1 each 08/04/22 09:00 08/04/22 07:53 Norethindrone 0.35 Mg- Patient's Own Oral Contraceptive PO 09/03/22 08:59 1 each QAM WINDY Administration Montelukast Sodium 10 mg 08/03/22 21:00 08/03/22 21:25 Montelukast Sodium 10 Mg Tablet PO 09/02/22 20:59 10 mg PM WINDY Administration Multivitamins 1 tab 08/03/22 09:00 08/04/22 07:52 Multivitamin Tab PO 09/02/22 08:59 1 tab DAILY WINDY Administration Ondansetron HCl 4 mg 08/03/22 13:10 08/03/22 13:16 Ondansetron Inj 2 Mg/Ml 2 Ml Vial IV 09/02/22 13:09 4 mg Q6H PRN Administration Nausea And Vomiting Tramadol HCl 25 - 50 mg 08/03/22 01:14 08/03/22 21:26 Tramadol Hcl 50 Mg Tablet PO 09/02/22 01:13 50 mg Q4H PRN Administration Pain Vitamin D 1,000 units 08/03/22 10:00 08/04/22 07:51 Cholecalciferol 1,000 Units 25 Mcg Tab PO 09/02/22 09:59 1,000 units DAILY WINDY Administration Past Medical History Medical History (Updated 08/04/22 @ 09:14 by Librado Rangel MD) Allergic rhinitis Anxiety Asthma Diverticulitis Encounter for pre-operative examination GERD (gastroesophageal reflux disease) HTN (hypertension) with goal to be determined IBS (irritable bowel syndrome) Peripheral arterial disease Scoliosis Past Surgical History Surgical History H/O detached retina repair H/O dilation and curettage History of breast lump removal History of cholecystectomy Social History Smoking Status: Former smoker tobacco type: cigarettes Hx Alcohol Use: Yes Alcohol type: wine alcohol intake frequency: holidays/special occasions only Hx Substance Use: Yes substance use type: marijuana Physical Exam Vital Signs Last Vital Signs Temp 37.0 C 08/04/22 07:42 Pulse 74 08/04/22 08:00 Resp 20 08/04/22 07:42 BP 149/88 H 08/04/22 07:42 Pulse Ox 94 08/04/22 07:42 O2 Del Method Room Air 08/04/22 09:00 Testing Laboratory Results 08/04/22 06:16 08/04/22 06:16 PT 10.6 Seconds (9.0-12.0) 08/02/22 17:37 INR 1.0 (0.9-1.1) 08/02/22 17:37 APTT 25.3 Seconds (21.0-31.0) 08/02/22 17:37 Urine Color Yellow 08/02/22 17:37 Urine Appearance Clear (Clear) 08/02/22 17:37 Urine pH 7.5 (4.5-7.5) 08/02/22 17:37 Ur Specific [place] 1.003 (1.000-1.030) 08/02/22 17:37 Urine Protein Negative (Negative) 08/02/22 17:37 Urine Glucose (UA) Negative (Negative) 08/02/22 17:37 Urine Ketones Negative (Negative) 08/02/22 17:37 Urine Nitrite Negative (Negative) 08/02/22 17:37 Ur Leukocyte Esterase Negative (Negative) 08/02/22 17:37
[2022-08-04] MEDS ORDERED: PROPOFOL IV EMULSION 10 MG/ML 20 ML VIAL IV ONE ×2 (10:42→10:57)
[2022-08-04] MEDS ORDERED: LIDOCAINE 2% 2 ML VIAL/AMP(20MG/ML) INFIL ONE ×2 (10:42→10:57)
--- NOTE | 2022-08-04 10:58 | History & Physical Report ---
Date of Service August 04, 2022 Assessment & Plan (1) Encounter for pre-operative examination: Plan Patient with black stools for EGD. Procedure and risks discussed, she agrees. Admission and Anticipated Discharge Date Admission Date: August 03, 2022 History of Present Illness Chief Complaint: black stools Primary Care Provider: oYvany Pineda 41 year old female with abdominal pain, diarrhea and black stools. she is here for EGD Allergies Allergy/AdvReac Type Severity Reaction Status Date / Time acetaminophen Allergy Rash Verified 08/02/22 17:23 [From Darvocet-N] meperidine [From Demerol] Allergy Swollen Verified 08/02/22 17:23 throat propoxyphene Allergy Rash Verified 08/02/22 17:23 [From Darvocet-N] Sulfa (Sulfonamide Allergy Rash Verified 08/02/22 17:23 Antibiotics) tetracycline Allergy Rash Verified 08/02/22 17:23 Home Medications Medication Instructions Recorded Confirmed Type amlodipine 5 mg tablet 5 mg PO DAILY 08/02/22 08/02/22 History aspirin 81 mg tablet,delayed 81 mg PO DAILY 08/02/22 08/02/22 History release benzoyl peroxide 5 % topical 1 applic topical DAILY 08/02/22 08/02/22 History cleanser cholecalciferol (vitamin D3) 25 1,000 unit PO DAILY 08/02/22 08/02/22 History mcg (1,000 unit) tablet clindamycin phosphate 1 % topical 1 applic topical BID 08/02/22 08/02/22 History swab colestipol 1 gram tablet 1 - 2 g PO BID PRN as directed 08/02/22 08/02/22 History dicyclomine 20 mg tablet 20 mg PO UD 08/02/22 08/02/22 History esomeprazole magnesium 40 mg 40 mg PO BID 08/02/22 08/02/22 History capsule,delayed release fexofenadine 180 mg tablet 180 mg PO DAILY 08/02/22 08/02/22 History (Breanna Allergy) fluticasone propionate 115 2 puff inhalation BID 08/02/22 08/02/22 History mcg-salmeterol 21 mcg/actuation HFA inhaler (Advair HFA) hyoscyamine sulfate 0.125 mg tablet 0.125 mg PO QID 08/02/22 08/02/22 History labetalol 200 mg tablet 200 mg PO BID 08/02/22 08/02/22 History levalbuterol tartrate 45 2 puff inhalation Q4 PRN acute 08/02/22 08/02/22 History mcg/actuation aerosol inhaler symptoms COUGH,WHEEZE,SOB, losartan 100 mg tablet 100 mg PO DAILY 08/02/22 08/02/22 History montelukast 10 mg tablet 10 mg PO DAILY 08/02/22 08/02/22 History tgyqknur-xuc-macc-FA-Ca carb-vit K 1 tab PO DAILY 08/02/22 08/02/22 History 18 mg iron-400 mcg-500 mg tablet (One-A-Day Womens Formula) norethindrone (contraceptive) 0.35 0.35 mg PO DAILY 08/02/22 08/02/22 History mg tablet (Jencycla) rizatriptan 10 mg tablet 10 mg PO UD PRN Headache 08/02/22 08/02/22 History tretinoin 0.025 % topical cream 1 applic topical HS 08/02/22 08/02/22 History (Retin-A) triamcinolone acetonide 55 mcg 2 spray intranasal DAILY 08/02/22 08/02/22 History nasal spray aerosol Past Med/Surg History Medical History Allergic rhinitis Anxiety Asthma Diverticulitis Encounter for pre-operative examination GERD (gastroesophageal reflux disease) HTN (hypertension) with goal to be determined IBS (irritable bowel syndrome) Peripheral arterial disease Scoliosis Surgical History H/O detached retina repair H/O dilation and curettage History of breast lump removal History of cholecystectomy Social History Smoking Status: Former smoker Hx Alcohol Use: Yes Alcohol type: wine Hx Substance Use: Yes Preferred Language: Syriac Receiver Setter Required: No Beliefs That Will Affect Care: None Current Living Situation: Spouse Current Living Situation Comment: Lives at home with spouse, biological, and adopted children Feels Safe at Home: Yes Safety Concerns: Feels Safe At This Time Assistive Devices: None and Glasses Review of Systems All systems reviewed & are unremarkable except as noted in HPI & below Physical Exam Constitutional: WD/WN, vitals as above Respiratory: normal respiratory effort, lungs clear to auscultation Cardiovascular: RRR, no murmur, no edema ASA Classification ASA ASA2 Results & Data Vital Signs (Past 12 Hours) Vital Signs Temp Pulse Pulse Resp BP Pulse Ox O2 Del Method 08/04/22 10:47 36.9 C 87 16 139/94 98 Room Air 08/04/22 09:00 Room Air 08/04/22 08:00 74 08/04/22 07:42 37.0 C 90 20 149/88 H 94 Room Air 08/04/22 04:00 36.8 C 88 18 132/87 97 Room Air 08/04/22 01:02 93 H 08/03/22 23:20 37.0 C 85 18 122/82 95 Room Air Code Status & VTE Plan VTE Prophylaxis Plan VTE Prophylaxis will be ordered: Yes
--- NOTE | 2022-08-04 11:21 | GI REPORT ---
Patient Name: Myrna Lamb Procedure Date: 08/04/2022 11:07 AM Date of : 1980 Admit Type: Inpatient Age: 41 Gender: Female Attending MD: Mindi Toussaint MD, Procedure: Upper GI endoscopy Providers: Mindi Toussaint MD Referring MD: Referred Self Indications: Melena Medicines: Propofol per Anesthesia Complications: No immediate complications. Estimated Blood Loss: Estimated blood loss: none. Procedure: Pre-Anesthesia Assessment: - Prior to the procedure, a History and Physical was performed, and patient medications and allergies were reviewed. The patient's tolerance of previous anesthesia was also reviewed. The risks and benefits of the procedure and the sedation options and risks were discussed with the patient. All questions were answered, and informed consent was obtained. Prior Anticoagulants: The patient has taken no anticoagulant or antiplatelet agents. ASA Grade Assessment: II - A patient with mild systemic disease. After reviewing the risks and benefits, the patient was deemed in satisfactory condition to undergo the procedure. After obtaining informed consent, the endoscope was passed under direct vision. Throughout the procedure, the patient's blood pressure, pulse, and oxygen saturations were monitored continuously. The Endoscope was introduced through the mouth, and advanced to the second part of duodenum. The upper GI endoscopy was accomplished without difficulty. The patient tolerated the procedure well. Findings: The esophagus was normal. The stomach was normal. The examined duodenum was normal. Impression: - Normal esophagus. - Normal stomach. - Normal examined duodenum. - No specimens collected. Recommendation: - Patient has a contact number available for emergencies. The signs and symptoms of potential delayed complications were discussed with the patient. Return to normal activities tomorrow. Written discharge instructions were provided to the patient. - Resume previous diet. - Continue present medications. Mindi Toussaint MD 08/04/2022 11:21:08 AM Note Initiated On: 08/04/2022 11:07 AM Number of Addenda: 0 I attest to the content of the Intraoperative Record and orders documented therein, exceptions below {[id number]}
--- NOTE | 2022-08-04 11:22 | Post Operative Brief Note ---
Immediate Post Op Note v1 Date of Surgery August 04, 2022 Pre & Post Diagnosis Operation Date: 08/04/22 16:30 Pre-Op Diagnosis: UGIB Post-Op Diagnosis: normal EGD I identified the patient and participated in the time-out.: Yes Procedure Operation Date: 08/04/22 16:30 Actual Procedures p Esophagogastroduodenoscopy - Mindi Toussaint Jr, MD Surgeon Mindi Toussaint Jr, MD Pot[employer] Packaging Machine Operator none Estimated Blood Loss 0 Findings See Below Normal EGD, no blood seen, no ulcers or erosions or esophagitis Anesthesia Type General Complications none Disposition Accompanied Patient To Recovery: No Disposition: Recovery Room Overlapping Procedure I was immediately available: during the entire case.
--- NOTE | 2022-08-04 12:07 | Discharge Summary ---
Date of Service August 04, 2022 Admission HPI Per Admitting Provider History obtained from patient and records. Medical history significant for HTN, PAD on aspirin, bronchial asthma, IBS, GERD, diverticulosis, past tobacco abuse. Patient started on aspirin once daily 6 months ago for peripheral arterial disease of the left lower extremity. Last week, patient noted achy abdominal discomfort/chronic diarrhea symptoms, worse than usual IBS symptoms. Patient seen at [facility] ER. Unremarkable imaging and blood work as per patient, patient discharged on Levsin. Improved abdominal discomfort however persistent diarrhea. Melanotic stools noted the last 2 days. Some nausea, no emesis. No OTC NSAID intake other than aspirin for PAD. Patient compliant with PPI regimen Admits to some personal stressors. Not sure about sick contacts given [facility] trips to visit mother who was admitted for ulcerative colitis flareup. No unusual weight loss. Intermittent headache symptoms with history of head trauma few months ago. No unusual chest pain, no SOB. Erratic BP at home with lightheadedness. Compliant with home BP meds. IV Protonix administered at the ER for UGIB. Admission Exam Per Admitting Provider GENERAL: Comfortable, pleasant, anxious, obese, no respiratory distress SKIN: Normal color, warm HEENT: Bespectacled, pink palpebral conjunctivae, no ptosis, dry buccal mucosa NECK : Supple, short neck, no tenderness CHEST : CTA, no tenderness HEART : RRR, no obvious murmurs ABDOMEN: Some distention, epigastric tenderness EXTREMITIES : Chronic LLE swelling with minimal tenderness, no other conspicuous deformities noted NEUROLOGIC : Coherent, no facial asymmetry, no other gross focality Principal Diagnosis Upper GI bleed, ruled out Discharge Data Allergies Allergy/AdvReac Type Severity Reaction Status Date / Time acetaminophen Allergy Rash Verified 08/02/22 17:23 [From Darvocet-N] meperidine [From Demerol] Allergy Swollen Verified 08/02/22 17:23 throat propoxyphene Allergy Rash Verified 08/02/22 17:23 [From Darvocet-N] Sulfa (Sulfonamide Allergy Rash Verified 08/02/22 17:23 Antibiotics) tetracycline Allergy Rash Verified 08/02/22 17:23 Consultations 08/02/22 23:11 ED Decision to Admit Stat 08/03/22 02:30 Consult Gastroenterology Routine Procedures Performed Operation Date: 08/04/22 16:30 Actual Procedures p Esophagogastroduodenoscopy - Mindi Toussaint Jr, MD Ordered Studies 08/02/22 17:34 CT abd pelvis oral and IV con Stat 08/03/22 00:05 CT head/brain wo con Stat Hospital Course (1) UGIB (upper gastrointestinal bleed): Patient is a 41-year-old female with past medical history of hypertension, bronchial asthma, GERD, IBS, PAD on aspirin who presented to the ED with abdominal discomfort and dark stool. On presentation, patient was hemodynamically stable, afebrile and saturating well on room air. Hemoglobin was 13.9 on admission. Patient was started on IV Protonix for concern of upper GI bleed. She was admitted to telemetry floor; CBC was monitored during the hospitalization. Patient underwent endoscopy found to have normal esophagus, stomach. Patient's hemoglobin remained stable. Patient reported that her stool color improved. Patient was discharged home. Total Time Total Time Spent Total Time Spent (In Minutes): 45 Discharge Plan Discharge Items Patient Disposition: Home - Self-Care Reason For Visit: UGIB Discharge Diagnosis: Upper GI bleed, rule out Condition on Discharge: Good Activity: Resume your previous activity Non-emergency contact: Primary Care Provider Call non-emergency contact if: you have any medication questions and your symptoms worsen Follow-up/Referrals: Yovany Pineda D.O. [Primary Care Provider] - Diet: Regular Addtl Attending Provider Instructions: You were admitted to the hospital with concern of upper GI bleed. You underwent endoscopy today by Dr. Toussaint. There is no evidence of bleeding in the esophagus and the stomach. Your hemoglobin remained stable during the hospitalization around 12.5. Please follow-up with your primary care doctor after discharge. Pending Studies at Discharge: No Stand-Alone Forms: My [facility] [employer], Smoking Cessation Medications and DC Order Prescriptions: Continued amlodipine 5 mg tablet 5 mg PO DAILY losartan 100 mg tablet 100 mg PO DAILY aspirin 81 mg Tablet,Delayed Release (Dr/Ec) 81 mg PO DAILY hyoscyamine sulfate 0.125 mg tablet 0.125 mg PO QID Rx Instructions: been taking it 3x a day since the labetalol 200 mg tablet 200 mg PO BID tretinoin [Retin-A] 0.025 % cream 1 applic TOPICAL HS esomeprazole magnesium 40 mg capsule,delayed release(DR/EC) 40 mg PO BID montelukast 10 mg tablet 10 mg PO DAILY fluticasone propion-salmeterol [Advair HFA] 115-21 mcg/actuation HFA aerosol inhaler 2 puff INHALATION BID cholecalciferol (vitamin D3) 25 mcg (1,000 unit) tablet 1,000 unit PO DAILY clindamycin phosphate 1 % swab 1 applic TOPICAL BID benzoyl peroxide 5 % cleanser 1 applic TOPICAL DAILY norethindrone (contraceptive) [Jencycla] 0.35 mg tablet 0.35 mg PO DAILY rizatriptan 10 mg tablet 10 mg PO UD PRN (Reason: Headache) fexofenadine [Breanna Allergy] 180 mg Tablet 180 mg PO DAILY colestipol 1 gram tablet 1 - 2 g PO BID PRN (Reason: as directed) levalbuterol tartrate 45 mcg/actuation HFA aerosol inhaler 2 puff INHALATION Q4 PRN (Reason: acute symptoms COUGH,WHEEZE,SOB,) One-A-Day Womens Formula 18 mg iron-400 mcg-500 mg Tablet 1 tab PO DAILY triamcinolone acetonide 55 mcg Aerosol,[place] 2 spray INTRANASAL DAILY Rx Instructions: administer into each nostril dicyclomine 20 mg tablet 20 mg PO UD Discharge Orders: Discharge Order (Routine); Ordered 08/04/22 Ordered By: Bismark Santamaria Admission Data Admit Date/Time: 08/03/22 01:12 Attending Provider: Bismark Santamaria Admit Provider: Farooq Finley Primary Care Provider: Yovany Pineda Other Providers: Farooq Finley ; Mindi Toussaint Jr Other Interventions: Discharge Summary Assessment (RN) Last Done: 08/04/22 11:37
--- NOTE | 2022-08-04 16:25 | Anesthesiology Progress Note ---
Date of Service August 04, 2022 Anesthesia Post Procedure Vital Signs Vital Signs: Temp Pulse Pulse Pulse Resp BP Pulse Ox 08/04/22 12:32 36.7 C 85 20 130/84 97 08/04/22 11:54 80 16 122/93 92 08/04/22 11:44 81 14 129/101 H 92 08/04/22 11:23 86 14 128/86 96 08/04/22 11:37 36.9 C 71 87 16 139/94 98 08/04/22 10:47 36.9 C 87 16 139/94 98 08/04/22 09:00 08/04/22 08:00 74 08/04/22 07:42 37.0 C 90 20 149/88 H 94 08/04/22 04:00 36.8 C 88 18 132/87 97 08/04/22 01:02 93 H 08/03/22 23:20 37.0 C 85 18 122/82 95 08/03/22 19:00 36.9 C 92 H 18 126/82 97 O2 Del Method 08/04/22 12:32 Room Air 08/04/22 11:54 Room Air 08/04/22 11:44 Room Air 08/04/22 11:23 Room Air 08/04/22 11:37 08/04/22 10:47 Room Air 08/04/22 09:00 Room Air 08/04/22 08:00 08/04/22 07:42 Room Air 08/04/22 04:00 Room Air 08/04/22 01:02 08/03/22 23:20 Room Air 08/03/22 19:00 Room Air Pain Intensity Abdomen: Pain Intensity: 0 Transfer of Care Handoff Completed per policy Notes Mental Status: alert / awake / arousable and participated in evaluation Patient Amnestic to Procedure: Yes Nausea / Vomiting: adequately controlled Pain: adequately controlled Airway Patency, RR, SpO2: stable & adequate BP & HR: stable & adequate Hydration State: stable & adequate Anesthetic Complications: no major complications apparent and Pt Satisfied with anesthetic care
== END 2022-08-04 13:25 | disposition home or self-care (01) ==
LOC: 2N 16:57 → ED 16:57 → 2N 08-03 02:19